=== PATIENT | female | born 1995 | race Caucasian/White ===

== ENCOUNTER 2017-01-31 10:07 | Emergency (ER) | payer OTHER, SELFPAY | END 2017-01-31 11:05 | disposition home or self-care (01) | PROVIDERS: Emergency Provider Nurse Practitioner Family; Family Provider Emergency Medicine; Visit Provider Nurse Practitioner Family | DX: J06.9 Acute upper respiratory infection, unspecified (principal); F17.210 Nicotine dependence, cigarettes, uncomplicated | CPT/HCPCS: 87804; 87880; 99201 ==

== ENCOUNTER 2017-02-06 14:50 | Emergency (ER) | payer OTHER, SELFPAY | END 2017-02-06 16:40 | disposition home or self-care (01) | PROVIDERS: Emergency Provider Nurse Practitioner Family; Family Provider Emergency Medicine; Visit Provider Nurse Practitioner Family | DX: M25.561 Pain in right knee (principal); F17.210 Nicotine dependence, cigarettes, uncomplicated; Z88.3 Allergy status to other anti-infective agents; Z88.0 Allergy status to penicillin; Z91.018 Allergy to other foods | CPT/HCPCS: 29505; 73562; 99203 ==

== ENCOUNTER 2017-02-14 20:05 | Emergency (ER) | payer OTHER, SELFPAY | END 2017-02-14 21:05 | disposition home or self-care (01) | PROVIDERS: Emergency Provider Nurse Practitioner Family; Family Provider Emergency Medicine; Visit Provider Nurse Practitioner Family | DX: Z32.02 Encounter for pregnancy test, result negative (principal); R11.0 Nausea; F17.210 Nicotine dependence, cigarettes, uncomplicated; Z88.1 Allergy status to other antibiotic agents | CPT/HCPCS: 36415; 81025; 84703; 99201 ==

== ENCOUNTER 2017-03-19 20:20 | Emergency (ER) | payer OTHER, SELFPAY ==
[2017-03-19 20:21] VITALS: BP 117/73; PULSE 88; RESP 14; TEMP 36.7; O2SAT 100; BMI 31.2
[2017-03-19 20:28] VITALS: BMI 33.3
--- NOTE | 2017-03-19 20:29 | XR_ITS ---
XR chest 2V HISTORY: ITS.REASON: CHEST PAIN ORDERING PHYSICIAN: Chong Byrd MD PATIENT AGE: 22 years COMPARISON: None available FINDINGS: The cardiomediastinal silhouette and pulmonary vascularity are within normal limits. The lungs are clear without infiltrates, suspicious nodules, or pleural effusions. No acute bony abnormalities. IMPRESSION: Negative chest, no acute finding
[2017-03-19 20:43] LABS: Basophils % 0.3 % (0.1-2.0); Eosinophils # 0.4 K/mm3 (0.0-0.4); Hematocrit 39.6 % (37.0-47.0); Hemoglobin 12.9 g/dL (12.2-16.2); Lymphocytes # 3.8 K/mm3 (0.7-4.5); Lymphocytes % 31.7 K/mm3 (10-50); Mean Corpuscular HGB Conc 32.5 g/dL (31.8-35.4); Mean Corpuscular Volume 92.5 fl (81-99); Mean Platelet Volume 8.7 fl (7.4-10.4); Monocytes # 0.5 K/mm3 (0.1-1.0); Neutrophils # 7.4 K/mm3 (1.8-7.8); Platelet Count 218 K/mm3 (142-424); Red Blood Count 4.29 M/mm3 (4.20-5.40); Red Cell Distribution Width 12.8 % (11.5-17.5); White Blood Count 12.1 K/mm3 (4.8-10.8)
[2017-03-19 21:08] LABS: Alanine Aminotransferase 19 U/L (12-78); Albumin Level 3.3 gm/dL (3.4-5.0); Alkaline Phosphatase 73 U/L (46-116); Amylase 39 U/L (25-125); Anion Gap 11.9 mEq/L (5-15); Aspartate Amino Transferase 11 U/L (15-37); Bilirubin,Total 0.1 mg/dL (0.2-1.0); Blood Urea Nitrogen 10 mg/dL (7-18); Calcium 8.3 mg/dL (8.5-10.1); Carbon Dioxide 29 mmol/L (21.0-32.0); Chloride 104 mmol/L (98-107); Creatine Kinase 11 U/L (26-192); Creatinine Clearance Estimated 160 mL/min (0-300); Creatinine,Serum 0.72 mg/dL (0.55-1.02); Estimated Glomerular Filt Rate 101 ml/min (>60); GFR (African American) 123 ML/MIN (>60); Globulin 3.4 gm/dl (1.3-3.2); Glucose 91 mg/dL (74-106); Potassium 3.9 mmoL/L (3.5-5.1); Sodium 141 mmol/L (136-145); Total Protein,Serum 6.7 gm/dL (6.4-8.2); Troponin I < 0.02 ng/ml (0.00-0.06)
[2017-03-19 21:10] LABS: Microscopic, Urine URINE MICROSCOPIC (MICROSCOPIC)
[2017-03-19 21:19] LABS: Appearance,Urine CLEAR (Clear); Bilirubin,Urine Negative (Negative); Blood, Urine Negative (Negative); Color,Urine YELLOW (Yellow); Glucose,Urine (UA) Negative (Negative); Ketones,Urine Negative (Negative); Leukocyte Esterase,Urine Negative (Negative); Nitrate,Urine Negative (Negative); PH,Urine 6.5 (5.0-8.5); Protein,Urine Negative (Negative); Urobilinogen,Urine 0.2 EU/dl (0.2)
[2017-03-19 21:26] LABS: Bacteria,Urine 1+ /lpf
[2017-03-19 21:32] LABS: CKMB Relative Index 4.5 U/L (0-4.0); Creatine Kinase MB < 0.5 mg/ml (0.0-3.6)
[2017-03-19 22:03] LABS: Lipase 143 u/L (73-393)
[2017-03-19 22:03] LABS: Urine Pregnancy, HCG Qual. Negative (Negative)
--- NOTE | 2017-03-19 22:30 | HMH.EDCP ---
ED Disposition Clinical Impression: Costochondritis, acute Disposition: Home, Self-Care Condition on Discharge: Good Instructions: DI for Costochondritis Additional Instructions: call pcp for follow up Referrals: Chong Byrd MD [Primary Care Provider] - - Critical Care Critical Care Time: No Attestation: On 03/19/17, the high probability of a clinically significant, sudden or life threatening deterioration of the following system(s) required my full and direct attention, intervention and personal management. The time I documented below is in addition to time spent performing reported procedures but includes the following listed in this critical care notation. Medical Decision Making Vital Signs: 03/19/17 20:21 Temperature 98.0 F Temperature Source Oral Pulse Rate [Right Radial] 88 Respiratory Rate 14 Blood Pressure [Left Arm] 117/73 Blood Pressure Mean [Left Arm] 87 Blood Pressure Source [Left Arm] Automatic Cuff Blood Pressure Position [Left Arm] Supine 02 Sat by Pulse Oximetry 100 Oxygen Delivery Method Room Air - Lab Data Lab results reviewed: Yes: I reviewed the patient's lab results. Lab Results 03/19/17 20:30: WBC 12.1 H, RBC 4.29, Hgb 12.9, Hct 39.6, MCV 92.5, MCH 30.0, MCHC 32.5, RDW 12.8, Plt Count 218, MPV 8.7, Neut % (Auto) 61.0, Lymph % (Auto) 31.7, Guthrie % (Auto) 4.0, Eos % (Auto) 3.0, Baso % (Auto) 0.3, Neut # (Auto) 7.4, Lymph # (Auto) 3.8, Guthrie # (Auto) 0.5, Eos # (Auto) 0.4, Baso # (Auto) 0.0 03/19/17 20:30: Sodium 141, Potassium 3.9, Chloride 104, Carbon Dioxide 29, Anion Gap 11.9, BUN 10, Creatinine 0.72, Estimated Creat Clear 160, Estimated GFR 101, Est GFR ( Amer) 123, Glucose 91, Calcium 8.3 L, Total Bilirubin 0.1 L, AST 11 L, ALT 19, Alkaline Phosphatase 73, Total Creatine Kinase 11 L, CK-MB (CK-2) < 0.5, CK-MB (CK-2) Rel Index 4.5 H, Troponin I < 0.02, Total Protein 6.7, Albumin 3.3 L, Globulin 3.4 H, Albumin/Globulin Ratio 1.0 L, Amylase 39 03/19/17 20:30: Lipase 143 03/19/17 20:39: Urine HCG, Qual Negative 03/19/17 20:53: Urine Color Yellow, Urine Appearance Clear, Urine pH 6.5, Ur Specific [place] 1.020, Urine Protein Negative, Urine Glucose (UA) Negative, Urine Ketones Negative, Urine Blood Negative, Urine Nitrate Negative, Urine Bilirubin Negative, Urine Urobilinogen 0.2, Ur Leukocyte Esterase Negative, Urine WBC 3-5, Ur Squamous Epith Cells 5-10, Urine Bacteria 1+ Result diagrams: 03/19/17 20:30 03/19/17 20:30 Orders (Tests/Meds): ED MEDICATIONS Discontinued Medications Generic Name Dose Route Start Last Admin Trade Name Freq PRN Reason Stop Dose Admin Aspirin 324 mg 03/19/17 20:30 03/19/17 20:46 Aspirin 81mg Chewable Tablet PO 03/19/17 20:31 324 mg ONCE ONE Administration ORDERS Category Date Time Status CT angio chest Stat Cat Scan 03/19/17 23:05 Taken Chest XR 2 view (NOT portable) [XR chest 2V] Stat Exams 03/19/17 20:29 Taken 12-lead EKG Request [ECG Request by /Ruddy] Stat Y 03/19/17 20:29 Ordered - Radiology Data #1 Image(s): Chest Image Reviewed: Yes I reviewed the patient's radiology image Preliminary Findings: Normal/NAD - CT Data CT Scan: Chest Time Received: 23:[address] Reviewed: Yes: I have viewed the radiologist's interpretation Preliminary Findings: Normal/NAD - ECG Data Tracing #1 I reviewed this ECG and interpreted as documented below: Ischemic changes: non-specific ST-T wave changes - Graham Inquiry Pt receiving controlled substance: No Chest Pain HPI - General Chief Complaint: Abdominal Pain Stated Complaint: chest pain / dizzy Time Seen by Provider: 03/19/17 22:30 Mode of Arrival: Ambulatory Source of Information: Patient, Significant Other, Medical Record Limitations: No Limitations Description of Symptoms (Recalled from ER Triage Doc. by RN): left upper abdomen pain into chest, dizziness, nausa - History of Present Illness HPI narrative: acute onset of lt sided lt
--- NOTE | 2017-03-19 22:33 | ED_ITS ---
ED Disposition Clinical Impression: Costochondritis, acute Disposition: Home, Self-Care Condition on Discharge: Good Instructions: DI for Costochondritis Additional Instructions: call pcp for follow up Referrals: Chong Byrd MD [Primary Care Provider] - - Critical Care Critical Care Time: No Attestation: On 03/19/17, the high probability of a clinically significant, sudden or life threatening deterioration of the following system(s) required my full and direct attention, intervention and personal management. The time I documented below is in addition to time spent performing reported procedures but includes the following listed in this critical care notation. Medical Decision Making Vital Signs: 03/19/17 20:21 Temperature 98.0 F Temperature Source Oral Pulse Rate [Right Radial] 88 Respiratory Rate 14 Blood Pressure [Left Arm] 117/73 Blood Pressure Mean [Left Arm] 87 Blood Pressure Source [Left Arm] Automatic Cuff Blood Pressure Position [Left Arm] Supine 02 Sat by Pulse Oximetry 100 Oxygen Delivery Method Room Air - Lab Data Lab results reviewed: Yes: I reviewed the patient's lab results. Lab Results 03/19/17 20:30: WBC 12.1 H, RBC 4.29, Hgb 12.9, Hct 39.6, MCV 92.5, MCH 30.0, MCHC 32.5, RDW 12.8, Plt Count 218, MPV 8.7, Neut % (Auto) 61.0, Lymph % (Auto) 31.7, Pope % (Auto) 4.0, Eos % (Auto) 3.0, Baso % (Auto) 0.3, Neut # (Auto) 7.4 , Lymph # (Auto) 3.8, Pope # (Auto) 0.5, Eos # (Auto) 0.4, Baso # (Auto) 0.0 03/19/17 20:30: Sodium 141, Potassium 3.9, Chloride 104, Carbon Dioxide 29, Anion Gap 11.9, BUN 10, Creatinine 0.72, Estimated Creat Clear 160, Estimated GFR 101, Est GFR ( Amer) 123, Glucose 91, Calcium 8.3 L, Total Bilirubin 0.1 L, AST 11 L, ALT 19, Alkaline Phosphatase 73, Total Creatine Kinase 11 L, CK -MB (CK-2) < 0.5, CK-MB (CK-2) Rel Index 4.5 H, Troponin I < 0.02, Total Protein 6.7, Albumin 3.3 L, Globulin 3.4 H, Albumin/Globulin Ratio 1.0 L, Amylase 39 03/19/17 20:30: Lipase 143 03/19/17 20:39: Urine HCG, Qual Negative 03/19/17 20:53: Urine Color Yellow, Urine Appearance Clear, Urine pH 6.5, Ur Specific [place] 1.020, Urine Protein Negative, Urine Glucose (UA) Negative, Urine Ketones Negative, Urine Blood Negative, Urine Nitrate Negative, Urine Bilirubin Negative, Urine Urobilinogen 0.2, Ur Leukocyte Esterase Negative, Urine WBC 3-5, Ur Squamous Epith Cells 5-10, Urine Bacteria 1+ Result diagrams: 03/19/17 20:30 03/19/17 20:30 Orders (Tests/Meds): ED MEDICATIONS Discontinued Medications Generic Name Dose Route Start Last Admin Trade Name Freq PRN Reason Stop Dose Admin Aspirin 324 mg 03/19/17 20:30 03/19/17 20:46 Aspirin 81mg Chewable Tablet PO 03/19/17 20:31 324 mg ONCE ONE Administration ORDERS Category Date Time Status CT angio chest Stat Cat Scan 03/19/17 23:05 Taken Chest XR 2 view (NOT portable) [XR chest 2V] Stat Exams 03/19/17 20:29 Taken 12-lead EKG Request [ECG Request by /Ruddy] Stat Y 03/19/17 20:29 Ordered - Radiology Data #1 Image(s): Chest Image Reviewed: Yes I reviewed the patient's radiology image Preliminary Findings: Normal/NAD - CT Data CT Scan: Chest Time Received: 23:[address] Reviewed: Yes: I have viewed the radiologist's interpretation Preliminary Findings: Normal/NAD - ECG Data Tracing #1 I reviewed this
--- NOTE | 2017-03-19 23:05 | CT_ITS ---
CT angio chest HISTORY: Shortness of breath, chest pain, left-sided chest pain, left anterior chest pain ITS.REASON: SOA ORDERING PHYSICIAN: Chong Byrd MD PATIENT AGE: 22 years TECHNIQUE: Axial images obtained following the administration of 75 mL of Isovue 370 . Sagittal, and coronal reformatted images are also generated and reviewed. COMPARISON: None FINDINGS: PULMONARY ARTERIES:No pulmonary embolus evident. AORTA:No acute finding. No thoracic aortic aneurysm or dissection evident LUNGS:Unremarkable. No mass or consolidation. PLEURAL SPACES:No significant effusion. No evidence of pneumothorax. HEART:Unremarkable. Normal heart size. No significant pericardial effusion. MEDIASTINAL AND HILAR STRUCTURES:No mediastinal or hilar mass evident. No dominant adenopathy.. Soft tissue density in the anterior mediastinum probably related to residual finding tissue. BONY STRUCTURES:No acute bony abnormalities apparent LYMPH NODES:No enlarged lymph nodes evident UPPER ABDOMEN:Unremarkable IMPRESSION: No acute finding. No evidence of pulmonary embolus or aortic aneurysm. Negative CTA of the chest
--- NOTE | 2017-03-19 23:08 | PC.NURSE ---
Pt.to radiology for CT
[2017-03-20 00:11] VITALS: BP 117/66; PULSE 80; RESP 16; TEMP 36.8; O2SAT 98
== END 2017-03-20 00:12 | disposition home or self-care (01) ==
PROVIDERS: Emergency Provider Emergency Medicine; Family Provider Emergency Medicine; PCP Emergency Medicine
DX: M94.0 Chondrocostal junction syndrome [Tietze] (principal)
CPT/HCPCS: 71046; 71275; 80053; 81001; 81025; 82150; 82550; 82553; 83690; 84484; 85025; 93005; 93041; 99284; Q9967

== ENCOUNTER 2017-03-27 16:24 | Emergency (ER) | payer OTHER, SELFPAY ==
[2017-03-27 16:48] VITALS: BP 128/83; PULSE 100; RESP 20; TEMP 37.5; O2SAT 98; BMI 29.8
--- NOTE | 2017-03-27 16:57 | HMH.EDUTC ---
[facility] [place] Disposition Clinical Impression: Viral upper respiratory illness Disposition: Home, Self-Care Condition on Discharge: Good Instructions: DI for Viral Upper Respiratory Infection -- Adult Additional Instructions: * Monitor Temp. Tylenol and/or Ibuprofen as needed. ER if fever is no less than 101 despite alternating Tylenol and Ibuprofen * Encourage fluids, water, Gatorade, powerade, pedialyte if infant/toddler/or child * Warm salt water gargles for throat irritation *Warm fluids *Sore throat lozenges *Sleep elevated *humidifier or vaporizer Lots of rest Increase fluids, water, Gatorade, powerade *Bromfed may cause drowsiness. Know how it effect you or your child. Before driving, caring for small children or sending your child to school Follow up IMMEDIATELY for new or worsening of symptoms OR no noticeable improvement over the next 48-72 hours. 911 immediately for any life threatening symptoms such as chest pain or difficulty breathing Prescriptions: Ibuprofen [Ibuprofen 800mg Tab] 800 mg PO Q6HP PRN #20 tab PRN Reason: Moderate Pain Brompheniramine/Pseudoephed/Dm [Bromfed DM Cough Syrup 5mL] 10 ml PO Q4H PRN #250 syrup PRN Reason: Cough Referrals: Chong Byrd MD [Primary Care Provider] - Time of Disposition: 17:13 Medical Decision Making - Medical Records Medical records reviewed: Yes: I reviewed the patient's medical records. Vital Signs: 03/27/17 16:48 Temperature 99.5 F Temperature Source Temporal Artery Scan Pulse Rate [Right] 100 H Respiratory Rate 20 Blood Pressure [Right Arm] 128/83 Blood Pressure Mean [Right Arm] 98 Blood Pressure Source [Right Arm] Automatic Cuff Blood Pressure Position [Right Arm] Sitting 02 Sat by Pulse Oximetry 98 Oxygen Delivery Method Room Air - Graham Inquiry Pt receiving controlled substance: No Graham was queried for this patient: No [facility] [place] HPI - General Stated complaint: body pain,weakness Mode of Arrival: Ambulatory Source of Information: Patient Limitations: No Limitations Description of Symptoms (Recalled from Triage Doc. by RN): BODY ACHES THIS AM HEENT Symptoms (Recalled from RN notes): Yes Resp Symptoms (Recalled from RN notes): No Skin Symptoms (Recalled from RN notes): No MS Symptoms (Recalled from RN notes): No Functional Status (Recalled from RN notes): N - History of Present Illness Provider Complaint: Patient states that she began to have body aches since this morning States that as the day went on she begin to run a low grade fever State that as the day progressed she continued to feel worse and she has babies at home so she came in to get checked for the flu - Related Data Previous Rx's Medication Instructions Recorded Brompheniramine/Pseudoephed/Dm 10 ml PO Q4H PRN #250 syrup 03/27/17 [Bromfed DM Cough Syrup 5mL] Ibuprofen [Ibuprofen 800mg Tab] 800 mg PO Q6HP PRN #20 tab 03/27/17 Allergies Allergy/AdvReac Type Severity Reaction Status Date / Time penicillin G [PENICILLIN G] Allergy Intermediate SWELLING Verified 03/22/17 10:25 erythromycin base Allergy Mild I-HIVES Verified 03/22/17 10:25 [ERYTHROMYCIN BASE] ARTIFICIAL STRAWBERRY Allergy Mild I-RASH Uncoded 02/06/17 14:05 FLAVORING - Worker's Comp Is this a Worker's Comp case?: No [facility] History I have reviewed the patient's past medical history: Yes Medical History: Denies:: Cancer, Diabetes Mellitus Type 1, Diabetes Mellitus Type 2, MRSA Laterality Cases: Bilateral: Tonsillectomy Amputation: No Fractures: No - *Social History Smoking Status: Current every day smoker Tobacco Type: cigarettes # Packs/Day (cigarettes): 1 Alcohol Intake: never Substance Use Type: denies use - Psychiatric History Expresses thoughts of harming self/others: None Suicide Plan Description: No Plan ROS Obtained: Yes All systems reviewed & no additional complaints - Constitutional Constitutional: Reports body ache, Reports chills, Reports fever(s) - ENT
--- NOTE | 2017-03-27 17:07 | ED_ITS ---
[facility] [place] Disposition Clinical Impression: Viral upper respiratory illness Disposition: Home, Self-Care Condition on Discharge: Good Instructions: DI for Viral Upper Respiratory Infection -- Adult Additional Instructions: * Monitor Temp. Tylenol and/or Ibuprofen as needed. ER if fever is no less than 101 despite alternating Tylenol and Ibuprofen * Encourage fluids, water, Gatorade, powerade, pedialyte if infant/toddler/or child * Warm salt water gargles for throat irritation *Warm fluids *Sore throat lozenges *Sleep elevated *humidifier or vaporizer Lots of rest Increase fluids, water, Gatorade, powerade *Bromfed may cause drowsiness. Know how it effect you or your child. Before driving, caring for small children or sending your child to school Follow up IMMEDIATELY for new or worsening of symptoms OR no noticeable improvement over the next 48-72 hours. 911 immediately for any life threatening symptoms such as chest pain or difficulty breathing Prescriptions: Ibuprofen [Ibuprofen 800mg Tab] 800 mg PO Q6HP PRN #20 tab PRN Reason: Moderate Pain Brompheniramine/Pseudoephed/Dm [Bromfed DM Cough Syrup 5mL] 10 ml PO Q4H PRN # 250 syrup PRN Reason: Cough Referrals: Chong Byrd MD [Primary Care Provider] - Time of Disposition: 17:13 Medical Decision Making - Medical Records Medical records reviewed: Yes: I reviewed the patient's medical records. Vital Signs: 03/27/17 16:48 Temperature 99.5 F Temperature Source Temporal Artery Scan Pulse Rate [Right] 100 H Respiratory Rate 20 Blood Pressure [Right Arm] 128/83 Blood Pressure Mean [Right Arm] 98 Blood Pressure Source [Right Arm] Automatic Cuff Blood Pressure Position [Right Arm] Sitting 02 Sat by Pulse Oximetry 98 Oxygen Delivery Method Room Air - Graham Inquiry Pt receiving controlled substance: No Graham was queried for this patient: No [facility] [place] HPI - General Stated complaint: body pain,weakness Mode of Arrival: Ambulatory Source of Information: Patient Limitations: No Limitations Description of Symptoms (Recalled from Triage Doc. by RN): BODY ACHES THIS AM HEENT Symptoms (Recalled from RN notes): Yes Resp Symptoms (Recalled from RN notes): No Skin Symptoms (Recalled from RN notes): No MS Symptoms (Recalled from RN notes): No Functional Status (Recalled from RN notes): N - History of Present Illness Provider Complaint: Patient states that she began to have body aches since this morning States that as the day went on she begin to run a low grade fever State that as the day progressed she continued to feel worse and she has babies at home so she came in to get checked for the flu - Related Data Previous Rx's Medication Instructions Recorded Brompheniramine/Pseudoephed/Dm 10 ml PO Q4H PRN #250 syrup 03/27/17 [Bromfed DM Cough Syrup 5mL] Ibuprofen [Ibuprofen 800mg Tab] 800 mg PO Q6HP PRN #20 tab 03/27/17 Allergies Allergy/AdvReac Type Severity Reaction Status Date / Time penicillin G [PENICILLIN G] Allergy Intermediate SWELLING Verified 03/22/17 10: 25 erythromycin base Allergy Mild I-HIVES Verified 03/22/17 10:25 [ERYTHROMYCIN BASE] ARTIFICIAL STRAWBERRY Allergy Mild I-RASH Uncoded 02/06/17 14:05 FLAVORING - Worker's Comp Is this a Worker's Comp case?: No H History I have reviewed the patient's past medical history: Y
[2017-03-27 17:18] LABS: UTC Influenza A Antigen Negative (Negative); UTC Influenza B Antigen Negative (Negative)
[2017-03-27 17:28] VITALS: BP 118/72; PULSE 88; RESP 18; TEMP 37.2
== END 2017-03-27 17:29 | disposition home or self-care (01) ==
PROVIDERS: Emergency Provider Nurse Practitioner; Family Provider Emergency Medicine; PCP Emergency Medicine
DX: J06.9 Acute upper respiratory infection, unspecified (principal)
CPT/HCPCS: 87804; 99201

== ENCOUNTER → 2017-04-26 10:18 | Outpatient (REF) | payer OTHER, SELFPAY ==
[2017-04-26 14:25] LABS: Alanine Aminotransferase 24 U/L (12-78); Albumin Level 3.5 gm/dL (3.4-5.0); Albumin/Globulin Ratio 1.1 (1.1-1.8); Alkaline Phosphatase 82 U/L (46-116); Anion Gap 14.3 mEq/L (5-15); Aspartate Amino Transferase 12 U/L (15-37); Bilirubin,Total 0.1 mg/dL (0.2-1.0); Blood Urea Nitrogen 11 mg/dL (7-18); Calcium 8.7 mg/dL (8.5-10.1); Carbon Dioxide 23 mmol/L (21.0-32.0); Chloride 105 mmol/L (98-107); Chol/HDL Ratio 5.7 (1-3.5); Cholesterol 148 mg/dL (140-200); Creatinine,Serum 0.76 mg/dL (0.55-1.02); Estimated Glomerular Filt Rate 95 ml/min (>60); Free T4 (Free Thyroxine) 0.97 ng/dl (0.76-1.46); GFR (African American) 115 ML/MIN (>60); Globulin 3.2 gm/dl (1.3-3.2); Glucose 95 mg/dL (74-106); HDL Cholesterol 26 mg/dL (29-89); LDL Cholesterol 53 mg/dL (0-130); Potassium 4.3 mmoL/L (3.5-5.1); Sodium 138 mmol/L (136-145); Thyroid Stimulating Hormone 2.34 uIU/ml (0.358-3.740); Total Protein,Serum 6.7 gm/dL (6.4-8.2); Triglycerides 347 mg/dL (30-200); VLDL Cholesterol 69 mg/dL (0-40)
[2017-04-26 14:46] LABS: Hemoglobin A1C 4.9 % (0.0-7.0)
[2017-04-26 18:08] LABS: Basophils % 0.4 % (0.1-2.0); Eosinophils # 0.3 K/mm3 (0.0-0.4); Eosinophils % 2.5 % (0.1-12.0); Hematocrit 42.3 % (37.0-47.0); Hemoglobin 13.7 g/dL (12.2-16.2); Lymphocytes # 2.9 K/mm3 (0.7-4.5); Lymphocytes % 28.1 K/mm3 (10-50); Mean Corpuscular HGB Conc 32.3 g/dL (31.8-35.4); Mean Corpuscular Hemoglobin 30.5 pg (27.0-31.2); Mean Corpuscular Volume 94.4 fl (81-99); Mean Platelet Volume 10.6 fl (7.4-10.4); Monocytes # 0.3 K/mm3 (0.1-1.0); Monocytes % 3.1 % (1.7-9.3); Neutrophils # 6.9 K/mm3 (1.8-7.8); Platelet Count 232 K/mm3 (142-424); Red Blood Count 4.48 M/mm3 (4.20-5.40); Red Cell Distribution Width 12.7 % (11.5-17.5); White Blood Count 10.5 K/mm3 (4.8-10.8)
[2017-04-27 19:25] LABS: Vitamin D 25 Hydroxy 17.1 ng/mL (30.0-100.0)
== END ==
LOC: LAB 10:18
PROVIDERS: Visit Provider Nurse Practitioner Family
DX: R53.83 Other fatigue (principal)
CPT/HCPCS: 80053; 80061; 82652; 83036; 84439; 84443; 85025

== ENCOUNTER 2019-12-09 16:27 | Emergency (ER) | payer BC, SELFPAY ==
[2019-12-09 16:28] VITALS: BP 137/92; PULSE 64; RESP 19; TEMP 36.8; O2SAT 100; BMI 27.4
--- NOTE | 2019-12-09 17:06 | HMH.EDUTC ---
[facility] Disposition Clinical Impression: Acute mastitis of right breast Nausea and vomiting Qualifiers: Vomiting type: unspecified Vomiting Intractability: non-intractable Qualified Code(s): R11.2 - Nausea with vomiting, unspecified Disposition: Home, Self-Care Condition on Discharge: Good Instructions: DI for Mastitis Additional Instructions: Apply warm wet compresses to the affected area on your breast 4 time per day. Take the medications as directed. You must follow up with your primary care physician regarding your mastitis. You may need additional imaging and work up. Make sure you follow up with in 48 to 72 hours. Take the zofran for your nausea/vomiting. GO TO THE ER FOR ANY WORSENING SYMPTOMS OR CONCERNS, ESPECIALLY FEVER/CHILLING OR CONTINUED VOMITING Prescriptions: Ondansetron [Zofran 4mg ODT] 4 mg PO Q8HP PRN #20 tab.rapdis PRN Reason: Nausea Transmission Status: Received by [facility] clindamycin HCL [Clindamycin HCl 300mg Cap] 300 mg PO Q8 10 Days #30 cap Transmission Status: Received by [facility] Referrals: Chong Byrd MD [Primary Care Provider] - Forms: Work/School Release Time of Disposition: 17:12 Medical Decision Making - Medical Records Medical records reviewed: No: I reviewed the patient's medical records. - Graham Inquiry Pt receiving controlled substance: No Vital Signs: 12/09/19 16:28 12/09/19 17:14 Temperature 98.2 F 98.2 F Temperature Source Oral Pulse Rate 64 Pulse Rate [Left Radial] 64 Respiratory Rate 19 19 Blood Pressure 137/92 H Blood Pressure [Right Arm] 137/92 H Blood Pressure Mean [Right Arm] 107 Blood Pressure Source Automatic Cuff Blood Pressure Source [Right Arm] Automatic Cuff Blood Pressure Position Sitting Blood Pressure Position [Right Arm] Sitting 02 Sat by Pulse Oximetry 100 Oxygen Delivery Method Room Air Room Air [facility] HPI - General Stated complaint: vOMITING Time Seen by Provider: 12/09/19 16:35 Mode of Arrival: Ambulatory Source of Information: Patient Limitations: No Limitations Description of Symptoms (Recalled from Triage Doc. by RN): c/o vomiting and no appetite for a week. States she has a swollen/warm red area around her nipple into her skin area HEENT Symptoms (Recalled from RN notes): No Resp Symptoms (Recalled from RN notes): No Skin Symptoms (Recalled from RN notes): No MS Symptoms (Recalled from RN notes): No Functional Status (Recalled from RN notes): wnl - History of Present Illness Provider Complaint: She states that she has felt bad and had frequent vomiting for the past 2 weeks. She states these symptoms began after she developed a swollen, red area on her right breast. She denies any fever or chills. She denies any nipple discharge from the affected breast. - Related Data Previous Rx's Medication Instructions Recorded Benzonatate [Tessalon Perle 100mg 100 mg PO TID #30 cap 05/21/18 Cap] levoFLOXacin [Levaquin 500mg 500 mg PO DAILY #7 tab 05/21/18 tab] predniSONE [Prednisone 20mg 20 mg PO BID #10 tab 05/21/18 Tab] Ondansetron [Zofran 4mg ODT] 4 mg PO Q8HP PRN #20 tab.rapdis 12/09/19 clindamycin HCL [Clindamycin HCl 300 mg PO Q8 10 Days #30 cap 12/09/19 300mg Cap] Allergies Allergy/AdvReac Type Severity Reaction Status Date / Time penicillin G [PENICILLIN G] Allergy Intermediate SWELLING Verified 10/24/17 20:50 erythromycin base Allergy Mild I-HIVES Verified 10/24/17 20:50 [ERYTHROMYCIN BASE] ARTIFICIAL STRAWBERRY Allergy Mild I-RASH Uncoded 05/24/17 12:48 FLAVORING - Worker's Comp Is this a Worker's Comp case?: No [facility] History - Hepatitis A Screen Drug use history?: No High risk sexual behaviors?: No History of sexually transmitted infection?: No Currently employed?: No Childcare worker?: No Do you have indoor plumbing?: Yes Do you have electricity?: Yes Attestation statement:: This patie
[2019-12-09 17:14] VITALS: BP 137/92; PULSE 64; RESP 19; TEMP 36.8; O2SAT 100
[2019-12-09 20:15] LABS: UTC Pregnancy Test, Urine Negative (Negative)
== END 2019-12-09 17:35 | disposition home or self-care (01) ==
PROVIDERS: Emergency Provider Nurse Practitioner Family; PCP Emergency Medicine
DX: N61.0 Mastitis without abscess (principal); G43.709 Chronic migraine without aura, not intractable, without status migrainosus; F17.210 Nicotine dependence, cigarettes, uncomplicated
CPT/HCPCS: 81025; 99201

== ENCOUNTER 2020-01-10 17:17 | Emergency (ER) | payer SELFPAY ==
[2020-01-10 17:20] VITALS: BP 135/85; PULSE 89; RESP 20; TEMP 36.9; O2SAT 100; BMI 29.2
--- NOTE | 2020-01-10 17:35 | HMH.EDUTC ---
[facility] [place] Clinical Impression: Exposure to COVID-19 virus Nausea and vomiting Qualifiers: Vomiting type: unspecified Vomiting Intractability: non-intractable Qualified Code(s): R11.2 - Nausea with vomiting, unspecified Disposition: Home, Self-Care Condition on Discharge: Good Instructions: Preventing the Spread of Coronavirus Discharge Instructions, DI for Nausea -- Adult Additional Instructions: Monitor temperature. Seek treatment if fever develops. Follow-up immediately if new or worse symptoms worsen or no noticeable improvement over 48 hours. Increase fluids such as water, Gatorade, Powerade, juice or Pedialyte with limited formula/dietary in children No food is okay as long as you are drinking. Once ready to eat start bland such as bananas, rice, applesauce, toast. Contagious until no diarrhea, vomiting, fever times 48 hours without medication Avoid antidiarrheals unless told otherwise. Best to let the virus run its course. Follow-up immediately for new or worsening symptoms or no noticeable improvement over the next 48 hours. self isolate until test results are known to be neg follow up with pcp if symptoms worsen or do not improve increase fluids tylenol or motrin as needed Referrals: Chong Byrd MD [Primary Care Provider] - Time of Disposition: 17:43 Medical Decision Making - Graham Inquiry Pt receiving controlled substance: No Vital Signs: 01/10/20 17:20 Temperature 98.4 F Temperature Source Oral Pulse Rate [Right Brachial] 89 Respiratory Rate 20 Blood Pressure [Right Arm] 135/85 Blood Pressure Mean [Right Arm] 101 Blood Pressure Source [Right Arm] Automatic Cuff Blood Pressure Position [Right Arm] Sitting 02 Sat by Pulse Oximetry 100 Oxygen Delivery Method Room Air Orders (Tests/Meds): ORDERS Category Date Time Status Covid-19 Nasal PCR Sendout [facility] Stat Lab 01/10/20 17:25 Received [facility] HPI - General Chief complaint: [facility] Stated complaint: COVID Testing Time Seen by Provider: 01/10/20 17:35 Mode of Arrival: Ambulatory Source of Information: Patient Limitations: No Limitations Description of Symptoms (Recalled from Triage Doc. by RN): PATIENT REQUESTING COVID TEST D/T EXPOSURE; DENIES SYMPTOMS HEENT Symptoms (Recalled from RN notes): No Resp Symptoms (Recalled from RN notes): No Skin Symptoms (Recalled from RN notes): No MS Symptoms (Recalled from RN notes): No Functional Status (Recalled from RN notes): WNL - History of Present Illness Provider Complaint: 24 yr old female presents for covid test. Pt states she was exposed. Pt states she has a runny nose and nausea. - Related Data Home Medications Medication Instructions Recorded Confirmed No Known Home Medications 12/19/19 12/19/19 Allergies Allergy/AdvReac Type Severity Reaction Status Date / Time penicillin G [PENICILLIN G] Allergy Intermediate SWELLING Verified 12/19/19 10:21 erythromycin base Allergy Mild I-HIVES Verified 12/19/19 10:21 [ERYTHROMYCIN BASE] ARTIFICIAL STRAWBERRY Allergy Mild I-RASH Uncoded 12/19/19 10:21 FLAVORING - Worker's Comp Is this a Worker's Comp case?: No [facility] History - Hepatitis A Screen Drug use history?: No High risk sexual behaviors?: No History of sexually transmitted infection?: No Currently employed?: No Childcare worker?: No Do you have indoor plumbing?: Yes Do you have electricity?: Yes Attestation statement:: This patient has been screened for Hepatitis A risk factors. I have reviewed the patient's past medical history: Yes Medical History: Reports:: Migraine Denies:: Cancer, Diabetes Mellitus Type 1, Diabetes Mellitus Type 2, Gall Bladder Disease, Gastroesophageal Reflux Disease(GERD), Gastrointestinal Bleed, Hypertension, MRSA Laterality Cases: Bilateral: Tonsillectomy Other Surgeries: Yes: , Other Amputation: No Fractures: No Comment: WISDOM TEETH REMOVED - Social History Smoking Status: Current ben
[2020-01-10 17:43] VITALS: BP 135/85; PULSE 89; RESP 20; TEMP 36.9; O2SAT 100
[2020-01-12 10:20] LABS: Covid-19 Nasal PCR Sendout UK Not Detected
== END 2020-01-10 17:45 | disposition home or self-care (01) ==
PROVIDERS: Emergency Provider Nurse Practitioner Family; PCP Emergency Medicine
DX: Z20.828 Contact with and (suspected) exposure to other viral communicable diseases (principal); F17.210 Nicotine dependence, cigarettes, uncomplicated; Z88.0 Allergy status to penicillin
CPT/HCPCS: 99201; U0003

== ENCOUNTER 2020-01-31 17:09 | Emergency (ER) | payer MEDICAID, SELFPAY ==
[2020-01-31 17:09] VITALS: BP 121/84; PULSE 80; RESP 16; TEMP 36.9; O2SAT 96; BMI 30.9
--- NOTE | 2020-01-31 17:55 | PC.NURSE ---
NNEKA LUGO speaking with Dr. Horn
--- NOTE | 2020-01-31 17:57 | PC.NURSE ---
DR URENA SPOKE WITH DR RICKS
--- NOTE | 2020-01-31 18:09 | HMH.EDGENADL ---
ED Disposition Clinical Impression: Conjunctivitis Disposition: Home, Self-Care Condition on Discharge: Good Instructions: DI for Eye Pain Referrals: Chong Byrd MD [Primary Care Provider] - - Critical Care Critical Care Time: No Attestation: On 01/31/20, the high probability of a clinically significant, sudden or life threatening deterioration of the following system(s) required my full and direct attention, intervention and personal management. The time I documented below is in addition to time spent performing reported procedures but includes the following listed in this critical care notation. Medical Decision Making - Medical Records Medical records reviewed: Yes: I reviewed the patient's medical records. - Graham Inquiry Pt receiving controlled substance: No Vital Signs: 01/31/20 17:09 Temperature 98.5 F Temperature Source Oral Pulse Rate [Left Radial] 80 Respiratory Rate 16 Blood Pressure [Right Arm] 121/84 Blood Pressure Mean [Right Arm] 96 Blood Pressure Source [Right Arm] Automatic Cuff Blood Pressure Position [Right Arm] Sitting 02 Sat by Pulse Oximetry 96 Oxygen Delivery Method Room Air Medical Decision Narrative: She is a 24-year-old female who presents with left eye pain after sleeping in contacts. Exam concerning for conjunctivitis. Concern for ulcer. No specific ulcers seen on fluorescein stain. Discussed with ophthalmology who recommended every 2 gentamicin drops today and then every 4 drops tomorrow. We will call them tomorrow if she is having worsening pain. Otherwise will follow up on Sunday. Return precautions given. Discharged General Adult HPI - General Chief complaint: Eye Problems Stated complaint: FB in L eye Time Seen by Provider: 01/31/20 17:55 Mode of Arrival: Ambulatory Limitations: No Limitations Description of Symptoms (Recalled from ER Triage Doc. by RN): c/o left eye pain. States she slept in her contact last night and woke up this am with drainage and redness in her left eye. - History of Present Illness HPI narrative: She is a healthy 24-year-old female who presents the emergency department today with left eye pain and discharge. Patient sleeps in her contacts occasionally and woke up this morning with significant left eye pain. Went to work and her eye pain persisted. She is also reporting blurry vision that does not improve with blinking. Also photophobia. No fevers, pain with extraocular movements. No other complaints - Related Data Home Medications Medication Instructions Recorded Confirmed No Known Home Medications 12/19/19 12/19/19 Allergies Allergy/AdvReac Type Severity Reaction Status Date / Time penicillin G [PENICILLIN G] Allergy Intermediate SWELLING Verified 12/19/19 10:21 erythromycin base Allergy Mild I-HIVES Verified 12/19/19 10:21 [ERYTHROMYCIN BASE] ARTIFICIAL STRAWBERRY Allergy Mild I-RASH Uncoded 12/19/19 10:21 [facility] History - Hepatitis A Screen Drug use history?: No High risk sexual behaviors?: No History of sexually transmitted infection?: No Currently employed?: No Childcare worker?: No Do you have indoor plumbing?: Yes Do you have electricity?: Yes Attestation statement:: This patient has been screened for Hepatitis A risk factors. Medical History: Reports:: Migraine Denies:: Cancer, Diabetes Mellitus Type 1, Diabetes Mellitus Type 2, Gall Bladder Disease, Gastroesophageal Reflux Disease(GERD), Gastrointestinal Bleed, Hypertension, MRSA Laterality Cases: Bilateral: Tonsillectomy Other Surgeries: Yes: , Other Amputation: No Fractures: No Comment: WISDOM TEETH REMOVED - Social History Smoking Status: Current every day smoker Tobacco Type: cigarettes # Packs/Day (cigarettes): 1 Alcohol Intake: never Substance Use Type: denies use Occupational Status: other Housing: house Household Members: family, children Family Hx:: Cancer ROS Obtained: Yes All systems revie
[2020-01-31 18:36] VITALS: BP 121/84; PULSE 80; RESP 16; TEMP 36.9; O2SAT 96
== END 2020-01-31 18:37 | disposition home or self-care (01) ==
PROVIDERS: Emergency Provider Emergency Medicine; PCP Emergency Medicine
DX: H10.32 Unspecified acute conjunctivitis, left eye (principal); F17.210 Nicotine dependence, cigarettes, uncomplicated
CPT/HCPCS: 99281

== ENCOUNTER 2020-05-17 14:02 | Emergency (ER) | payer MEDICAID, SELFPAY ==
[2020-05-17 14:23] VITALS: BP 140/74; PULSE 88; RESP 19; TEMP 36.9; O2SAT 100; BMI 33.0
[2020-05-17 14:34] LABS: UTC Strep Screen (Rapid) Positive (Negative)
--- NOTE | 2020-05-17 14:39 | HMH.EDUTC ---
[facility] [place] Clinical Impression: Viral upper respiratory illness Disposition: Home, Self-Care Condition on Discharge: Good Instructions: Sore Throat, Fluticasone Nasal [place] Additional Instructions: *Monitor Temp, Over the counter Motrin or Tylenol as directed/as needed Tylenol every 4 hours and Motrin every 6 hours (as long as your family doctor has told you that you can take it) for fever or pain. and straight to ER if unable to lower temp less than 101.0 after medication given *Warm salt water gargles may help to soothe the throat *Throat Lozenges *Warm fluids like tea with honey may help to soothe the throat *Sleep elevated *Humidifier/Vaporizer *Flonase 2 sprays in each nostril daily but be aware that it may take 2-3 days before you notice improvement *Bromfed may cause drowsiness. Know how it effects you (your child) before driving, caring for small child, or sending your child to school. Not other antihistamines/allergy medications while taking bromfed Your throat swab was sent for culture. Those results are typically sent to your primary care. Be sure to follow up in 2-3 days with your family doctor/primary care physician if no improvement so they can review those result and treat if necessary. If you don?t have a primary care doctor, I recommend you get one but in the mean time, you will have to return to a walk in clinic Over the counter allergy medications like zyrtec may help with nasal congestion caused by allergies Follow up IMMEDIATELY for new or worsening symptoms or no Noticeable improvement over the next 48-72 hours. 911 for difficulty breathing or swallowing Prescriptions: Brompheniramine/Pseudoephed/Dm [Bromfed Dm Cough Syrup] 5 - 10 ml PO Q46H PRN #200 ml PRN Reason: Cough Transmission Status: Received by [facility] Fluticasone Propionate [Flonase 50mcg nasal spray 16gm] 1 spr NS DAILY #1 bottle Transmission Status: Received by [facility] Referrals: Chong Byrd MD [Primary Care Provider] - As needed Forms: Work/School Release Time of Disposition: 14:46 Medical Decision Making - Graham Inquiry Pt receiving controlled substance: No Graham was queried for this patient: No Vital Signs: 05/17/20 14:23 05/17/20 14:56 Temperature 98.4 F 98 F Temperature Source Oral Pulse Rate 85 Pulse Rate [Right] 88 Respiratory Rate 19 16 Blood Pressure 131/72 Blood Pressure [Right Arm] 140/74 Blood Pressure Mean [Right Arm] 96 Blood Pressure Source [Right Arm] Automatic Cuff Blood Pressure Position [Right Arm] Sitting 02 Sat by Pulse Oximetry 100 Oxygen Delivery Method Room Air - Lab Data Lab results reviewed: Yes: I reviewed the patient's lab results. Lab Results 05/17/20 14:28: Strep Scn Rapid Clinic Positive A [facility] [place] - General Stated complaint: Sore throat;congestion Time Seen by Provider: 05/17/20 14:40 Mode of Arrival: Ambulatory Source of Information: Patient Limitations: No Limitations Description of Symptoms (Recalled from Triage Doc. by RN): sore throat and soa. pt thinks she has strep. doesn't want to be covid swabbed. HEENT Symptoms (Recalled from RN notes): Yes (sore throat) Resp Symptoms (Recalled from RN notes): Yes (soa) Skin Symptoms (Recalled from RN notes): No MS Symptoms (Recalled from RN notes): No Functional Status (Recalled from RN notes): na - History of Present Illness Provider Complaint: Patient states that she has been having sore throat and nasal congestion and feels like at times she cannot breath through her nose States that she thinks she may have strep throat Denies fever and states that she does not want tested for covid - Related Data Previous Rx's Medication Instructions Recorded Brompheniramine/Pseudoephed/Dm 5 - 10 ml PO Q46H PRN #200 ml 05/17/20 [Bromfed Dm Cough Syrup] Fluticasone Propionate [Flonase 1 spr NS DAILY #1 bottle 05/17/20 50mcg nasal spray 16gm] Allergies Nikolay
[2020-05-17 14:56] VITALS: BP 131/72; PULSE 85; RESP 16; TEMP 36.6
== END 2020-05-17 15:03 | disposition home or self-care (01) ==
PROVIDERS: Emergency Provider Nurse Practitioner; PCP Emergency Medicine
DX: J06.9 Acute upper respiratory infection, unspecified (principal); F17.210 Nicotine dependence, cigarettes, uncomplicated; Z88.0 Allergy status to penicillin
CPT/HCPCS: 87880; 99202; G0463

== ENCOUNTER 2020-06-18 16:11 | Emergency (ER) | payer MEDICAID, SELFPAY ==
--- NOTE | 2020-06-18 16:27 | XR_ITS ---
PROCEDURE INFORMATION: Exam: XR Left Foot Exam date and time: 06/18/2020 4:27 PM Age: 25 years old Clinical indication: Injury or trauma; Other: Stumped toe; Blunt trauma; Toes; Left lesser toe(s); Patient HX: C/O pain in 2nd toe TECHNIQUE: Imaging protocol: XR Left foot. Views: 3 or more views. COMPARISON: CR FTL3 FOOT-LT-3 VIEWS 08/01/2016 8:53 PM FINDINGS: Bones/joints: There is no evidence of acute fracture. There is no evidence of joint malalignment or dislocation. Soft tissues: There are no soft tissue masses or fluid collections. IMPRESSION: 1. No evidence of acute fracture. 2. No evidence of acute dislocation.
--- NOTE | 2020-06-18 17:01 | HMH.EDUTC ---
[facility] [place]ression: Left foot pain Injury of toe on left foot Qualifiers: Encounter type: initial encounter Qualified Code(s): S99.922A - Unspecified injury of left foot, initial encounter Disposition: Home, Self-Care Condition on Discharge: Good Instructions: DI for Foot Sprain Additional Instructions: Rest the extremity, Elevate the extremity as tolerated while you are resting. Take ibuprofen for pain. I sent in a prescription to your pharmacy. Follow up with Dr. Mora (podiatry) if you continue to have pain or issues with your foot. I put in a referral but you need to call his office and schedule an appointment. Follow up with your regular doctor. GO TO THE ER FOR ANY WORSENING SYMPTOMS Apply the mupirocin (antibiotic ointment) as directed. Prescriptions: Ibuprofen [Ibuprofen 600mg Tablet] 600 mg PO Q6HP PRN #30 tab PRN Reason: Mild Pain Transmission Status: Received by [facility] Mupirocin [Bactroban 2% Ointment 22gm tube] 1 applicatio TP TID 7 Days #1 tube Transmission Status: Received by [facility] Referrals: Chong Byrd MD [Primary Care Provider] - Dulce Maria Mora DPM [Staff Physician] - Time of Disposition: 17:19 Medical Decision Making - Medical Records Medical records reviewed: No: I reviewed the patient's medical records. - Graham Inquiry Pt receiving controlled substance: No Vital Signs: 06/18/20 17:03 06/18/20 17:33 Temperature 98.7 F 98 F Temperature Source Oral Pulse Rate 76 Pulse Rate [Right] 86 Respiratory Rate 14 14 Blood Pressure 122/85 Blood Pressure [Right Arm] 130/93 H Blood Pressure Mean [Right Arm] 105 Blood Pressure Source [Right Arm] Automatic Cuff Blood Pressure Position [Right Arm] Sitting 02 Sat by Pulse Oximetry 99 Oxygen Delivery Method Room Air [facility] [place] - General Stated complaint: AO04/29 lac to l 2nd toe Time Seen by Provider: 06/18/20 17:01 - History of Present Illness Provider Complaint: She states that she tripped last night and fell going up some steps. Since then she has had pain of her left second toe. - Related Data Previous Rx's Medication Instructions Recorded Brompheniramine/Pseudoephed/Dm 5 - 10 ml PO Q46H PRN #200 ml 05/17/20 [Bromfed Dm Cough Syrup] Fluticasone Propionate [Flonase 1 spr NS DAILY #1 bottle 05/17/20 50mcg nasal spray 16gm] levonorgestrel-ethinyl estradiol 1 tab PO DAILY #28 tab 05/18/20 0.1 mg-20 mcg tablet Ibuprofen [Ibuprofen 600mg 600 mg PO Q6HP PRN #30 tab 06/18/20 Tablet] Mupirocin [Bactroban 2% Ointment 1 applicatio TP TID 7 Days #1 tube 06/18/20 22gm tube] Allergies Allergy/AdvReac Type Severity Reaction Status Date / Time penicillin G [PENICILLIN G] Allergy Intermediate SWELLING Verified 05/17/20 14:29 erythromycin base Allergy Mild I-HIVES Verified 05/17/20 14:29 [ERYTHROMYCIN BASE] ARTIFICIAL STRAWBERRY Allergy Mild I-RASH Uncoded 12/19/19 10:21 [facility] History - Hepatitis A Screen Attestation statement:: This patient has been screened for Hepatitis A risk factors. I have reviewed the patient's past medical history: Yes Medical History: Reports:: Migraine Denies:: Cancer, Diabetes Mellitus Type 1, Diabetes Mellitus Type 2, Gall Bladder Disease, Gastroesophageal Reflux Disease(GERD), Gastrointestinal Bleed, Hypertension, MRSA Laterality Cases: Bilateral: Tonsillectomy Other Surgeries: Yes: , Other Amputation: No Fractures: No Comment: WISDOM TEETH REMOVED - Social History Smoking Status: Current every day smoker Tobacco Type: cigarettes # Packs/Day (cigarettes): 1 Alcohol Intake: never Substance Use Type: denies use Occupational Status: employed Housing: house Household Members: family, children Family Hx:: Cancer ROS Obtained: Yes All systems reviewed & no additional complaints - Constitutional Constitutional: Denies chills, Denies fever(s)
[2020-06-18 17:03] VITALS: BP 130/93; PULSE 86; RESP 14; TEMP 37.1; O2SAT 99; BMI 25.7
[2020-06-18 17:33] VITALS: BP 122/85; PULSE 76; RESP 14; TEMP 36.6
== END 2020-06-18 17:35 | disposition home or self-care (01) ==
PROVIDERS: Emergency Provider Nurse Practitioner Family; PCP Emergency Medicine
DX: S99.922A Unspecified injury of left foot, initial encounter (principal); W01.0XXA Fall on same level from slipping, tripping and stumbling without subsequent striking against object, initial encounter; Y92.019 Unspecified place in single-family (private) house as the place of occurrence of the external cause; G43.709 Chronic migraine without aura, not intractable, without status migrainosus; Z88.0 Allergy status to penicillin; F17.210 Nicotine dependence, cigarettes, uncomplicated
CPT/HCPCS: 73630; 99202; G0463

== ENCOUNTER 2020-07-21 10:19 | Emergency (ER) | payer MEDICAID, SELFPAY ==
[2020-07-21 10:40] VITALS: BP 129/84; PULSE 97; RESP 14; TEMP 36.9; O2SAT 100; BMI 30.7
--- NOTE | 2020-07-21 11:05 | HMH.EDUTC ---
[facility] [place]ression: Nausea & vomiting Qualifiers: Vomiting type: unspecified Vomiting Intractability: unspecified Qualified Code(s): R11.2 - Nausea with vomiting, unspecified Disposition: Home, Self-Care Condition on Discharge: Good Instructions: Medications and , Nausea and Vomiting-Adult Additional Instructions: ?? Avoid fruit juices, as these do not replace minerals and can actually increase diarrhea. ? Children and adults can use sports drinks to replenish electrolytes. Younger children and infants should use products formulated for children, like oral rehydration solutions. ? Eat food in small amounts and let your stomach recover. ? Get lots of rest. You may feel tired or weak. ? No greasy or fried foods for the next 24-48 hours BRAT diet Bananas Rice Apples and [place] ? Make sure to drink plenty of liquids ? Return if needed ? Straight to ER if any life threatening symptoms Get lab work as ordered by Dr Olson Follow up with OBGYN if you continue to have nausea for further treatment Try sucking on peppermint candy it may help with nausea Follow up with OBGYN ? Follow up with family doctor in the next 48-72 hours if no improvement or any worsening of symptoms Referrals: Chong Byrd MD [Primary Care Provider] - As needed Time of Disposition: 12:27 Medical Decision Making - Graham Inquiry Pt receiving controlled substance: No Graham was queried for this patient: No Vital Signs: 07/21/20 10:40 07/21/20 12:42 Temperature 98.5 F 98.5 F Temperature Source Tympanic Pulse Rate 98 H Pulse Rate [Right] 97 H Respiratory Rate 14 16 Blood Pressure 122/87 Blood Pressure [Right Arm] 129/84 Blood Pressure Mean [Right Arm] 99 02 Sat by Pulse Oximetry 100 - Lab Data Lab results reviewed: Yes: I reviewed the patient's lab results. Lab Results 07/21/20 10:48: Urine Color Yellow, Urine Appearance Clear, Urine pH 6.0, Ur Specific [place] 1.010, Urine Protein Negative, Urine Glucose (UA) Negative, Urine Ketones Negative, Urine Blood Negative, Urine Nitrate Negative, Urine Bilirubin Negative, Urine Urobilinogen 0.2, Ur Leukocyte Esterase Negative, Tst Clinic Negative 07/21/20 11:11: HCG, Quant 55 H Medical Decision Narrative: Lab work discussed with patient and she agreed will follow up with Dr Olson if nausea continues and for further evaluation due to + Qual HCG [facility] [place] - General Stated complaint: lt abdominal pain Time Seen by Provider: 07/21/20 11:05 Mode of Arrival: Ambulatory Source of Information: Patient Limitations: No Limitations Description of Symptoms (Recalled from Triage Doc. by RN): pt is having sharp LLQ abd pain. she states she is late for her period. first day of last period was 06/15/20 HEENT Symptoms (Recalled from RN notes): No Resp Symptoms (Recalled from RN notes): No Skin Symptoms (Recalled from RN notes): No MS Symptoms (Recalled from RN notes): No Functional Status (Recalled from RN notes): na - History of Present Illness Provider Complaint: Patient states that her child has had a stomach bug State that she thinks she has it now also States that she has been having nausea and her abdomen feels like it is churning and then she vomit on and off x 3 days States that also she wants to get tested for States that she is late on her period and took 6 home and they was positive Denies pain at this time - Related Data Previous Rx's Medication Instructions Recorded Brompheniramine/Pseudoephed/Dm 5 - 10 ml PO Q46H PRN #200 ml 05/17/20 [Bromfed Dm Cough Syrup] Fluticasone Propionate [Flonase 1 spr NS DAILY #1 bottle 05/17/20 50mcg nasal spray 16gm] levonorgestrel-ethinyl estradiol 1 tab PO DAILY #28 tab 05/18/20 0.1 mg-20 mcg tablet Ibuprofen [Ibuprofen 600mg 600 mg PO Q6HP PRN #30 tab 06/18/20 Tablet] Mupirocin [Bactroban 2% Ointment 1 applicatio TP TID 7 Days #1 tube 06/18/20 22gm tube] promethazine
[2020-07-21 11:21] LABS: Apearance,Urine Clear (Clear); Color,Urine Yellow (Yellow); Glucose,Urine (UA) Negative (Negative); Protein,Urine Negative (Negative)
[2020-07-21 11:22] LABS: Bilirubin,Urine Negative (Negative); Blood, Urine Negative (Negative); Ketones,Urine Negative (Negative); UTC Leukocyte Esterase,Urine Negative (Negative); UTC Nitrate,Urine Negative (Negative); UTC Pregnancy Test, Urine Negative (Negative); Urobilinogen,Urine 0.2 EU/dl (0.2)
[2020-07-21 12:15] LABS: HCG,Quantitative 55 mIU/ml (0-5.42)
[2020-07-21 12:42] VITALS: BP 122/87; PULSE 98; RESP 16; TEMP 36.9
== END 2020-07-21 12:45 | disposition home or self-care (01) ==
PROVIDERS: Emergency Provider Nurse Practitioner; PCP Emergency Medicine
DX: R10.32 Left lower quadrant pain (principal); R11.2 Nausea with vomiting, unspecified; Z88.0 Allergy status to penicillin
CPT/HCPCS: 81003; 81025; 84702; 99202; G0463

== ENCOUNTER → 2020-07-23 10:39 | Outpatient (CLI) | payer MEDICAID, SELFPAY ==
[2020-07-23 12:10] LABS: Basophils # 0.1 K/mm3 (0-0.2); Basophils % 0.5 % (0.1-2.0); Eosinophils # 0.3 K/mm3 (0.0-0.4); Eosinophils % 2.7 % (0.1-12.0); Hematocrit 41.2 % (37.0-47.0); Hemoglobin 13.8 g/dL (12.2-16.2); Lymphocytes # 2.4 K/mm3 (0.7-4.5); Lymphocytes % 20.9 % (10-50); Mean Corpuscular HGB Conc 33.4 g/dL (31.8-35.4); Mean Corpuscular Hemoglobin 30.1 pg (27.0-31.2); Mean Corpuscular Volume 90.1 fl (81-99); Mean Platelet Volume 10.2 fl (7.4-10.4); Monocytes # 0.4 K/mm3 (0.1-1.0); Monocytes % 3.7 % (1.7-9.3); Neutrophils # 8.2 K/mm3 (1.8-7.8); Neutrophils % 72.2 % (37.0-80.0); Platelet Count 205 K/mm3 (142-424); Red Blood Count 4.57 M/mm3 (4.20-5.40); Red Cell Distribution Width 13.6 % (11.5-17.5); White Blood Count 11.3 K/mm3 (4.8-10.8)
[2020-07-23 12:46] LABS: HCG,Quantitative 147 mIU/ml (0-5.42)
[2020-07-24 06:11] LABS: HIV Screen 4th Generation wRfx Non Reactive (Non Reactive)
[2020-07-24 08:53] LABS: Hepatitis B Surface Antigen Negative (Negative); Hepatitis C Antibody <0.1 s/co ratio (0.0-0.9)
[2020-07-24 09:43] LABS: HSV 1 IgG, Type Spec <0.91 index (0.00-0.90); HSV 2 IgG, Type Spec <0.91 index (0.00-0.90)
[2020-07-24 10:43] LABS: Rapid Plasma Reagin Ab Titer Non Reactive (NonRea<1:1)
== END ==
PROVIDERS: Visit Provider Nurse Practitioner Obstetrics & Gynecology
DX: Z34.90 Encounter for supervision of normal pregnancy, unspecified, unspecified trimester (principal)
CPT/HCPCS: 36415; 84702; 85025; 86592; 86695; 86703; 86762; 86790; 86850; 87340; 87380; G0432

== ENCOUNTER → 2020-08-02 13:17 | Outpatient (CLI) | payer MEDICAID, SELFPAY ==
--- NOTE | 2020-08-02 13:17 | US_ITS ---
PROCEDURE: US OB <= 14 WEEKS FETUS CLINICAL INDICATION: US OB DATES Before 14 wks COMPARISON: No exams were available for comparison FINDINGS: There is a single intrauterine with gestational sac and yolk sac with no pole. Mean sac diameter is 8 millimeters. Findings may represent a early intrauterine or spontaneous . Correlation with quantitative serial beta HCG and follow-up ultrasound is recommended. 2 centimeter probable right corpus luteal ovarian cyst. No free fluid in the pelvis. Left ovary is normal. IMPRESSION: Single intrauterine with gestational sac and yolk sac with no pole yet identified. Mean sac diameter is 8 millimeters. Findings may represent an early intrauterine or spontaneous . Correlation with quantitative serial beta hCG and follow-up ultrasound is recommended. 2 centimeter probable right corpus luteal ovarian cyst. Dictated by: Garth Huff 08/02/2020 15:51 Garth Huff in OV 08/02/2020 15:51
== END ==
PROVIDERS: PCP Emergency Medicine; Visit Provider Nurse Practitioner Obstetrics & Gynecology
DX: O26.841 Uterine size-date discrepancy, first trimester (principal)
CPT/HCPCS: 76801

== ENCOUNTER → 2020-08-12 12:33 | Outpatient (CLI) | payer MEDICAID, SELFPAY ==
--- NOTE | 2020-08-12 12:36 | US_ITS ---
PROCEDURE: US OB <= 14 WEEKS FETUS CLINICAL INDICATION: for dates COMPARISON: US US OB <= 14 WEEKS FETUS from 08/02/2020 FINDINGS: An intrauterine gestational sac is present with a pole with a crown-rump length of 0.94cm correlating to gestational age of 6weeks 6days. heart tones are present with an FHR of 138bpm. Yolk sac is noted. IMPRESSION: Live IUP with an average ultrasound age of 6 weeks 6 days Estimated due date by Ultrasound is 04/01/2021 Dictated by: Will Winchester MD 08/12/2020 15:06 Will Winchester MD in OV 08/12/2020 15:06
== END ==
PROVIDERS: PCP Emergency Medicine; Visit Provider Nurse Practitioner Obstetrics & Gynecology
DX: Z34.90 Encounter for supervision of normal pregnancy, unspecified, unspecified trimester (principal)
CPT/HCPCS: 76801

== ENCOUNTER → 2021-01-25 16:26 | Outpatient (CLI) | payer MEDICAID, SELFPAY | PROVIDERS: PCP Emergency Medicine; Visit Provider Nurse Practitioner | DX: Z20.822 Contact with and (suspected) exposure to COVID-19 (principal) | CPT/HCPCS: C9803; U0003; U0005 ==

== ENCOUNTER → 2021-03-02 15:35 | Outpatient (CLI) | payer MEDICAID, SELFPAY | PROVIDERS: Visit Provider Nurse Practitioner | DX: U07.1 COVID-19 (principal) | CPT/HCPCS: C9803; U0003; U0005 ==

== ENCOUNTER 2021-08-02 16:52 | Emergency (ER) | payer BC, MEDICAID, SELFPAY ==
[2021-08-02 17:40] VITALS: BP 128/82; PULSE 110; RESP 18; TEMP 36.7; O2SAT 96; BMI 30.4
--- NOTE | 2021-08-02 17:56 | HMH.EDUTC ---
[facility] [place] Clinical Impression: Nausea and vomiting Qualifiers: Vomiting type: unspecified Qualified Code(s): R11.2 - Nausea with vomiting, unspecified Disposition: Home, Self-Care Condition on Discharge: Good Instructions: Nausea and Vomiting-Adult, Ondansetron Additional Instructions: Drink extra fluids with and between meals. If you have difficulty drinking, try very small amounts of water or suck on ice chips. ? Avoid fruit juices, as these do not replace minerals and can actually increase diarrhea. ? Children and adults can use sports drinks to replenish electrolytes. Younger children and infants should use products formulated for children, like oral rehydration solutions. ? Eat food in small amounts and let your stomach recover. ? Get lots of rest. You may feel tired or weak. ? No greasy or fried foods for the next 24-48 hours BRAT diet Bananas Rice Apples and Desha ? Make sure to drink plenty of liquids ? Return if needed ? Straight to ER if any life threatening symptoms ? Zofran as prescribed ? Follow up with family doctor in the next 48-72 hours if no improvement or any worsening of symptoms Prescriptions: Ondansetron [Zofran 4mg ODT] 4 mg PO TIDP PRN #10 tab PRN Reason: Nausea Transmission Status: Pending to [facility] Referrals: Chong Byrd MD [Primary Care Provider] - As needed Forms: Work/School Release Time of Disposition: 17:59 Medical Decision Making - Graham Inquiry Pt receiving controlled substance: No Graham was queried for this patient: No Vital Signs: 08/02/21 17:40 Temperature 98.1 F Temperature Source Oral Pulse Rate [Left Radial] 110 H Respiratory Rate 18 Blood Pressure [Right Arm] 128/82 Blood Pressure Mean [Right Arm] 97 02 Sat by Pulse Oximetry 96 [facility] [place] HPI - General Stated complaint: vomiting Time Seen by Provider: 08/02/21 17:56 Description of Symptoms (Recalled from Triage Doc. 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 States that last night the factory was very hot and she got sick at her stomach and vomited several times States that today she was still having a little N/V so she didnt go to work and came in to see if she could get something for the nausea - Related Data Home Medications Medication Instructions Recorded Confirmed PNV 153-FA 400 mcg-om3 35 mg-dha tab PO 07/23/20 07/23/20 25 mg-epa 5 mg-fish oil chew tablet Previous Rx's Medication Instructions Recorded promethazine 12.5 mg tablet 12.5 mg PO Q4-6H PRN #30 tab 07/21/20 vits no.126-ferrous fum 1 tab PO DAILY #30 tab 07/23/20 28 mg iron-folic acid 800 mcg tablet Ondansetron [Zofran 4mg ODT] 4 mg PO TIDP PRN #10 tab 08/02/21 Allergies Allergy/AdvReac Type Severity Reaction Status Date / Time penicillin G [PENICILLIN G] Allergy Intermediate SWELLING Verified 07/23/20 10:05 erythromycin base Allergy Mild I-HIVES Verified 07/23/20 10:05 [ERYTHROMYCIN BASE] ARTIFICIAL STRAWBERRY Allergy Mild I-RASH Uncoded 07/23/20 10:05 [facility] - Worker's Comp Is this a Worker's Comp case?: No [facility] History - Hepatitis A Screen Attestation statement:: This patient has been screened for Hepatitis A risk factors. I have reviewed the patient's past medical history: Yes Medical History: Reports:: Migraine Denies:: Cancer, Diabetes Mellitus Type 1, Diabetes Mellitus Type 2, Gall Bladder Disease, Gastroesophageal Reflux Disease(GERD), Gastrointestinal Bleed, Hypertension, MRSA Laterality Cases: Bilateral: Tonsillectomy Other Surgeries: Yes: , Other Amputation: No Fra
[2021-08-02 18:14] VITALS: BP 128/82; PULSE 110; RESP 18; TEMP 36.7
== END 2021-08-02 18:29 | disposition home or self-care (01) ==
PROVIDERS: Emergency Provider Nurse Practitioner; PCP Emergency Medicine
DX: R11.2 Nausea with vomiting, unspecified (principal); R53.82 Chronic fatigue, unspecified; G43.909 Migraine, unspecified, not intractable, without status migrainosus; F17.210 Nicotine dependence, cigarettes, uncomplicated; Z88.0 Allergy status to penicillin; Z88.1 Allergy status to other antibiotic agents; Z88.3 Allergy status to other anti-infective agents; Z83.511 Family history of glaucoma; Z82.49 Family history of ischemic heart disease and other diseases of the circulatory system; Z80.9 Family history of malignant neoplasm, unspecified; Z91.048 Other nonmedicinal substance allergy status
CPT/HCPCS: 99213; G0463

== ENCOUNTER 2021-11-14 17:44 | Emergency (ER) | payer BC, MEDICAID, SELFPAY ==
[2021-11-14 18:10] VITALS: BP 125/75; PULSE 89; RESP 19; TEMP 36.8; O2SAT 98; BMI 28.7
--- NOTE | 2021-11-14 18:26 | EXP.UTC ---
Discharge Plan Disposition Patient Disposition: Home, Self-Care Condition: Good Prescriptions Prescriptions: No Action Gummies 400 mcg-35 mg- 25 mg-5 mg tablet,chewable PO Classic 28 mg iron- 800 mcg tablet 1 tab PO DAILY Qty: 30 11RF promethazine 12.5 mg tablet 12.5 mg PO Q4-6H PRN (Reason: nausea and vomiting) Qty: 30 1RF ondansetron 4 MG tablet,disintegrating 4 mg PO TIDP PRN (Reason: Nausea) Qty: 10 0RF Referrals Follow up/Referrals: Chong Byrd MD [Primary Care Provider] - See instructions Activity Restrictions/Add. Instructions Additional Instructions/Restrictions: *Monitor Temp, Over the counter Motrin or Tylenol as directed/as needed Tylenol every 4 hours and Motrin every 6 hours (as long as your family doctor has told you that you can take it) for fever or pain. and straight to ER if unable to lower temp less than 101.0 after medication given *Warm salt water gargles may help to soothe the throat *Throat Lozenges? *Warm fluids like tea with honey may help to soothe the throat? *Sleep elevated *Humidifier/Vaporizer Follow up IMMEDIATELY for new or worsening symptoms or no Noticeable improvement over the next 48-72 hours. 911 for difficulty breathing or swallowing You were tested for today for COVID19 your test result should be back in the next 24-48 hours, you may check your results on the [facility] My Health Portal Make sure to take your Vitamins Vit. C Vit D and Zinc if you can take them Clinical Impressions Clinical Impression: Viral syndrome Stand Alone Forms Stand Alone Forms: Work/School Release Instructions Patient Instructions: Coronavirus Disease 2019, Preventing the Spread of Coronavirus Discharge Instructions Discharge ED Provider: Mendy Chou [facility] [place] HPI General Stated complaint: covid swab Mode of Arrival: Ambulatory Source of Information: Patient Limitations: No Limitations Time Seen by Provider: 11/14/21 18:26 Description of Symptoms (Recalled from Triage Doc. by RN): PATIENT C/O BODY ACHES AND HEADACHE SINCE THIS MORNING. REPORTS A POSITIVE AT HOME COVID TEST HEENT Symptoms (Recalled from RN notes): Yes Resp Symptoms (Recalled from RN notes): No Skin Symptoms (Recalled from RN notes): No MS Symptoms (Recalled from RN notes): No Functional Status (Recalled from RN notes): WNL History of Present Illness Provider Complaint: Patient states that she woke up this morning not feeling well States that she has been having body aches, chills, headache and stuffy nose States that she took a home COVID test and it showed positive so she came in to get a PCR test Related Data Home Medications Medication Instructions Recorded Confirmed PNV 153-FA 400 mcg-om3 35 mg-dha tab PO 07/23/20 07/23/20 25 mg-epa 5 mg-fish oil chew tablet ( Gummies) Previous Rx's Medication Instructions Recorded promethazine 12.5 mg tablet 12.5 mg PO Q4-6H PRN nausea and 07/21/20 vomiting #30 tabs vits no.126-ferrous fum 1 tab PO DAILY #30 tabs 07/23/20 28 mg iron-folic acid 800 mcg tablet (Classic ) ondansetron 4 mg disintegrating 4 mg PO TIDP PRN Nausea #10 tabs 08/02/21 tablet Allergies Allergy/AdvReac Type Severity Reaction Status Date / Time penicillin G [PENICILLIN G] Allergy Intermediate SWELLING Verified 07/23/20 10:05 erythromycin base Allergy Mild I-HIVES Verified 07/23/20 10:05 [ERYTHROMYCIN BASE] ARTIFICIAL STRAWBERRY Allergy Mild I-RASH Uncoded 07/23/20 10:05 FLAVORING Worker's Comp Is this a Worker's Comp case?: No [facility] Medical History (Updated 11/14/21 @ 18:29 by Mendy Chou APRN) No significant past medical history Social History Smoking Status: Current every day smoker tobacco type: cigarettes packs per day: 1 second hand exposure: No alcohol intake: never substance use type: denies use cu
[2021-11-14 18:32] VITALS: BP 125/75; PULSE 89; RESP 19; TEMP 36.8; O2SAT 98
== END 2021-11-14 18:37 | disposition home or self-care (01) ==
PROVIDERS: Emergency Provider Nurse Practitioner; PCP Emergency Medicine
DX: B34.9 Viral infection, unspecified (principal); R11.2 Nausea with vomiting, unspecified; M79.10 Myalgia, unspecified site; R51.9 Headache, unspecified; F17.210 Nicotine dependence, cigarettes, uncomplicated; Z20.822 Contact with and (suspected) exposure to COVID-19; Z79.899 Other long term (current) drug therapy; Z88.0 Allergy status to penicillin; Z88.1 Allergy status to other antibiotic agents; Z88.3 Allergy status to other anti-infective agents; Z88.8 Allergy status to other drugs, medicaments and biological substances; Z91.018 Allergy to other foods
CPT/HCPCS: 99213; C9803; G0463; U0003; U0005

== ENCOUNTER → 2021-11-22 03:44 | Outpatient (CLI) | payer BC, MEDICAID, SELFPAY ==
[2021-11-22 04:04] LABS: Adenovirus,PCR Not Detected (NotDetected); Bordetella Pertussis Not Detected (NotDetected); Chlamydophila Pneumoniae, PCR Not Detected (NotDetected); Coronavirus 229E Not Detected (NotDetected); Coronavirus NL63 Not Detected (NotDetected); Coronavirus OC43 Not Detected (NotDetected); Coronovirus HKU1,PCR Not Detected (NotDetected); Human Metapneumovirus Not Detected (NotDetected); Influenza A, PCR Not Detected (NotDetected); Influenza AH1, 2009 Not Detected (NotDetected); Influenza AH1, PCR Not Detected (NotDetected); Influenza AH3,PCR Not Detected (NotDetected); Influenza B, PCR Not Detected (NotDetected); Mycoplasma Pneumoniae, PCR Not Detected (NotDetected); Parainfluenza 1, PCR Not Detected (NotDetected); Parainfluenza 2, PCR Not Detected (NotDetected); Parainfluenza 3, PCR Not Detected (NotDetected); Parainfluenza 4, PCR Not Detected (NotDetected); Respiratory Syncytial Virus Not Detected (NotDetected); Rhinovirus/Enterovirus Not Detected (NotDetected)
[2021-11-22 06:23] LABS: Coronavirus 19, PCR Detected (NotDetected)
== END ==
PROVIDERS: PCP Emergency Medicine; Visit Provider Emergency Medicine
DX: U07.1 COVID-19 (principal); R51.9 Headache, unspecified; J02.9 Acute pharyngitis, unspecified; R05.9 Cough, unspecified; R09.89 Other specified symptoms and signs involving the circulatory and respiratory systems
CPT/HCPCS: 87581; 87632; 87798; C9803; U0003; U0005

== ENCOUNTER 2022-06-20 19:31 | Emergency (ER) | payer BC, MEDICAID, SELFPAY ==
[2022-06-20 19:32] VITALS: BP 148/77; PULSE 75; RESP 17; TEMP 36.8; O2SAT 100; BMI 29.2
--- NOTE | 2022-06-20 19:44 | EXP.UTC ---
Discharge Plan Disposition Patient Disposition: Home, Self-Care Condition: Good Prescriptions Prescriptions: New ibuprofen [IBU] 800 mg tablet 800 mg PO Q8HP PRN (Reason: Moderate Pain) Qty: 30 0RF No Action Gummies 400 mcg-35 mg- 25 mg-5 mg tablet,chewable PO Classic 28 mg iron- 800 mcg tablet 1 tab PO DAILY Qty: 30 11RF promethazine 12.5 mg tablet 12.5 mg PO Q4-6H PRN (Reason: nausea and vomiting) Qty: 30 1RF ondansetron 4 MG tablet,disintegrating 4 mg PO TIDP PRN (Reason: Nausea) Qty: 10 0RF Referrals Follow up/Referrals: Chong Byrd MD [Primary Care Provider] - See instructions Activity Restrictions/Add. Instructions Additional Instructions/Restrictions: Go home and rest. It would be best if you rested tomorrow too. Follow up with your regular doctor. GO TO THE ER FOR ANY WORSENING SYMPTOMS OR CONCERN Clinical Impressions Clinical Impression: Migraine Stand Alone Forms Stand Alone Forms: Work/School Release Instructions Patient Instructions: Migraine -- Adult, DI for Migraine, Ketorolac Injection, Dexamethasone Injection Discharge ED Provider: Garth Freitas [facility] [place] HPI General Stated complaint: Migraine X2 days with vomiting Time Seen by Provider: 06/20/22 19:44 History of Present Illness Provider Complaint: She states that she has had a migraine headache since yesterday. she was unable to go to work today, so she came here to try to get it better. She has a history of migraines with aura. She states that this is like her normal migraine, but it has went on longer and been resistant to the ibuprofen that she normally takes for them. Related Data Home Medications Medication Instructions Recorded Confirmed PNV 153-FA 400 mcg-om3 35 mg-dha tab PO 07/23/20 07/23/20 25 mg-epa 5 mg-fish oil chew tablet ( Gummies) Previous Rx's Medication Instructions Recorded promethazine 12.5 mg tablet 12.5 mg PO Q4-6H PRN nausea and 07/21/20 vomiting #30 tabs vits no.126-ferrous fum 1 tab PO DAILY #30 tabs 07/23/20 28 mg iron-folic acid 800 mcg tablet (Classic ) ondansetron 4 mg disintegrating 4 mg PO TIDP PRN Nausea #10 tabs 08/02/21 tablet ibuprofen 800 mg tablet (IBU) 800 mg PO Q8HP PRN Moderate Pain 06/20/22 #30 tabs Allergies Allergy/AdvReac Type Severity Reaction Status Date / Time penicillin G [PENICILLIN G] Allergy Intermediate SWELLING Verified 07/23/20 10:05 erythromycin base Allergy Mild I-HIVES Verified 07/23/20 10:05 [ERYTHROMYCIN BASE] ARTIFICIAL STRAWBERRY Allergy Mild I-RASH Uncoded 07/23/20 10:05 FLAVORING [facility] Disclaimer: The information contained in this section may have been updated after the patient was seen, as this information can be updated by other users. Medical History No significant past medical history Social History Smoking Status: Current every day smoker tobacco type: cigarettes packs per day: 1 second hand exposure: No alcohol intake: never substance use type: denies use current occupational status: employed Travel in the last 8 weeks: None household members: family and children housing: house ROS Obtained: Yes All systems reviewed & no additional complaints except as documented Constitutional Constitutional: Denies chills and Denies fever(s) Eyes Eyes: Denies eye discharge ENT Ears, Nose, Mouth, and Throat: Denies dizziness, Denies otalgia and Denies sore throat Cardiovascular Cardiovascular: Denies chest pain Respiratory Respiratory: Denies shortness of breath, Denies chest congestion, Denies cough, Denies stridor and Denies wheezing Gastrointestinal Gastrointestingal: Denies nausea or vomiting Musculoskeletal Musculoskeletal: Reports system reviewed and no additional complaints, except as documented and Denies arthr
[2022-06-20 20:06] VITALS: BP 148/77; PULSE 75; RESP 18; TEMP 36.8; O2SAT 100
== END 2022-06-20 20:07 | disposition home or self-care (01) ==
PROVIDERS: Emergency Provider Nurse Practitioner Family; PCP Emergency Medicine
DX: G43.909 Migraine, unspecified, not intractable, without status migrainosus (principal); R11.10 Vomiting, unspecified; F17.210 Nicotine dependence, cigarettes, uncomplicated
CPT/HCPCS: 96372; 99212; 99214; G0463

== ENCOUNTER 2022-12-03 21:49 | Emergency (ER) | payer BC, MEDICAID, SELFPAY ==
[2022-12-03 22:00] VITALS: BP 117/84; PULSE 86; RESP 15; TEMP 36.7; O2SAT 100; BMI 29.2
--- NOTE | 2022-12-03 22:06 | XR_ITS ---
PROCEDURE INFORMATION: Exam: XR Right Foot Exam date and time: 12/03/2022 10:02 PM Age: 27 years old Clinical indication: Injury or trauma; Other: Tool cart ran over foot; Work related; Swelling (edema); Right; Additional info: Foot vs. Equipment TECHNIQUE: Imaging protocol: Radiologic exam of the right foot. Views: 3 or more views. COMPARISON: CR [id number] 02/06/2017 3:37 PM FINDINGS: Bones/joints: No acute fracture or malalignment. Soft tissues: Normal. IMPRESSION: No acute osseous findings.
--- NOTE | 2022-12-03 22:16 | HMH.EDGENADL ---
Discharge Plan Disposition Patient Disposition: Home, Self-Care Chief Complaint: Extremity Injury, Lower Prescriptions Prescriptions: No Action Gummies 400 mcg-35 mg- 25 mg-5 mg tablet,chewable PO Classic 28 mg iron- 800 mcg tablet 1 tab PO DAILY Qty: 30 11RF promethazine 12.5 mg tablet 12.5 mg PO Q4-6H PRN (Reason: nausea and vomiting) Qty: 30 1RF ondansetron 4 MG tablet,disintegrating 4 mg PO TIDP PRN (Reason: Nausea) Qty: 10 0RF ibuprofen [IBU] 800 mg tablet 800 mg PO Q8HP PRN (Reason: Moderate Pain) Qty: 30 0RF Referrals Follow up/Referrals: Chong Byrd MD [Primary Care Provider] - See instructions Ferny Abernathy DO [Staff Physician] - See instructions Activity Restrictions/Add. Instructions Additional Instructions/Restrictions: At this time is felt you are safe to be discharged home. Please wear your hard soled shoe for comfort and bear weight on your foot as tolerated. If persistent symptoms please call and schedule an appointment for follow-up with Dr. Abernathy. Clinical Impressions Clinical Impression: Foot trauma Discharge ED Provider: Urbano Lord [facility] HPI General Chief complaint: Extremity Injury, Lower Stated complaint: [id number] right foot injury Time Seen by Provider: 12/03/22 22:00 Mode of Arrival: Family Vehicle Source of Information: Patient Limitations: No Limitations Description of Symptoms (Recalled from ER Triage Doc. by RN): 27 yo female presents with CC of right medial distal foot injury. Pt reports injury at work where she says the forklift glanced off the side of foot. Notable bruising to site, and reported tingling with flexion or dorsiflexion. Able to ambulate without assistance, but is painful /10. Does not consider this a worker's comp per her statement. History of Present Illness HPI narrative: Patient is a 27-year-old female with no pertinent past medical history presents emergency department for evaluation of traumatic injury to her foot. Patient was at work yesterday when she was struck by a pallet on her right distal medial foot over her metatarsal phalangeal joint. She she has been able to bear weight with pain. No other acute complaints at this time. Related Data Home Medications Medication Instructions Recorded Confirmed PNV 153-FA 400 mcg-om3 35 mg-dha tab PO 07/23/20 07/23/20 25 mg-epa 5 mg-fish oil chew tablet ( Gummies) Previous Rx's Medication Instructions Recorded promethazine 12.5 mg tablet 12.5 mg PO Q4-6H PRN nausea and 07/21/20 vomiting #30 tabs vits no.126-ferrous fum 1 tab PO DAILY #30 tabs 07/23/20 28 mg iron-folic acid 800 mcg tablet (Classic ) ondansetron 4 mg disintegrating 4 mg PO TIDP PRN Nausea #10 tabs 08/02/21 tablet ibuprofen 800 mg tablet (IBU) 800 mg PO Q8HP PRN Moderate Pain 06/20/22 #30 tabs Allergies Allergy/AdvReac Type Severity Reaction Status Date / Time penicillin G [PENICILLIN G] Allergy Intermediate SWELLING Verified 07/23/20 10:05 erythromycin base Allergy Mild I-HIVES Verified 07/23/20 10:05 [ERYTHROMYCIN BASE] ARTIFICIAL STRAWBERRY Allergy Mild I-RASH Uncoded 07/23/20 10:05 FLAVORING PFSH PFS Disclaimer: The information contained in this section may have been updated after the patient was seen, as this information can be updated by other users. Medical History No significant past medical history Social History Smoking Status: Unknown if ever smoked second hand exposure: No alcohol intake: never substance use type: denies use current occupational status: employed Travel in the last 8 weeks: None household members: family and children housing: house ROS Obtained: Yes Systems reviewed as appropriate & no additional complaints except as documented Physical Exam General Ge
--- NOTE | 2022-12-03 22:16 | PC.NURSE ---
back from rad
[2022-12-03 22:36] VITALS: BP 126/88; PULSE 80; RESP 16; TEMP 36.9; O2SAT 100
== END 2022-12-03 22:40 | disposition home or self-care (01) ==
PROVIDERS: Emergency Provider Emergency Medicine; PCP Emergency Medicine
DX: S99.921A Unspecified injury of right foot, initial encounter (principal); W22.8XXA Striking against or struck by other objects, initial encounter
CPT/HCPCS: 73630; 99283

== ENCOUNTER 2024-03-31 22:50 | Emergency (ER) | payer MEDICAID, SELFPAY ==
[2024-03-31 22:53] VITALS: BP 134/76; PULSE 91; RESP 18; TEMP 36.6; O2SAT 100; BMI 31.6
[2024-03-31 23:01] LABS: Influenza A, PCR Not Detected (NotDetected); Influenza B, PCR Not Detected (NotDetected)
[2024-03-31 23:30] VITALS: BP 101/72; PULSE 95; O2SAT 100
[2024-03-31 23:34] LABS: Coronavirus 19, PCR Detected (NotDetected)
[2024-04-01 00:01] VITALS: BP 132/93; PULSE 103; O2SAT 100
--- NOTE | 2024-04-01 00:01 | HMH.EDGENADL ---
Discharge Plan Disposition Patient Disposition: Home, Self-Care Condition: Good Prescriptions Prescriptions: New ondansetron 4 mg tablet,disintegrating 4 mg PO Q6H PRN (Reason: nausea and vomiting) Qty: 7 0RF No Action Gummies 400 mcg-35 mg- 25 mg-5 mg tablet,chewable PO Classic 28 mg iron- 800 mcg tablet 1 tab PO DAILY Qty: 30 11RF promethazine 12.5 mg tablet 12.5 mg PO Q4-6H PRN (Reason: nausea and vomiting) Qty: 30 1RF ondansetron 4 MG tablet,disintegrating 4 mg PO TIDP PRN (Reason: Nausea) Qty: 10 0RF ibuprofen [IBU] 800 mg tablet 800 mg PO Q8HP PRN (Reason: Moderate Pain) Qty: 30 0RF Referrals Follow up/Referrals: Maribell Randhawa APRN [Primary Care Provider] - See instructions Activity Restrictions/Add. Instructions Additional Instructions/Restrictions: You were evaluated in the ER and are appropriate for discharge at this time. You are positive for COVID. Wash your hands and try to avoid spreading your illness to others. Take Tylenol (acetaminophen) and ibuprofen if needed for fever, body aches. Do not exceed the recommended dose on the bottle. Drink water and eat a small snack each time you take these medications to avoid side effects. Take the prescribed ondansetron if needed for nausea. Drink plenty of water, Pedialyte, and Gatorade to maintain good hydration. Make an appointment with your primary care doctor for reevaluation in a few days. Return to the ER with new, worsening, or otherwise concerning symptoms. Clinical Impressions Clinical Impression: COVID Stand Alone Forms Stand Alone Forms: Work/School Release Print Language Print Language: Maltese Discharge ED Provider: Gunner Loo [facility] Adult HPI General Chief complaint: Fever Stated complaint: exp flu-sore throat, PARK fever Time Seen by Provider: 03/31/24 23:55 Mode of Arrival: Ambulatory Source of Information: Patient Limitations: No Limitations Description of Symptoms (Recalled from ER Triage Doc. by RN): Pt presents for evaluation of cough, fever (101.2) took motrin at 9pm tonight, and runny nose. Pt states she was exposed to flu A History of Present Illness HPI narrative: 29-year-old female who reports no chronic medical conditions presents to the ER for cough, fever of 101.2 at home, runny nose, body aches. She reports she has been exposed to influenza recently. She reported to me that she took Tylenol prior to arrival and has not taken any ibuprofen or Motrin. She reports she has also had nausea with few episodes of emesis but no abdominal pain, constipation, diarrhea, no numbness, tingling, or weakness, no chest pain or difficulty breathing, no other associated symptoms. No dysuria or hematuria. History of tubal. Related Data Home Medications ?Medication ?Instructions ?Recorded ?Confirmed PNV 153-FA 400 mcg-om3 35 mg-dha tab PO 07/23/20 07/23/20 25 mg-epa 5 mg-fish oil chew tablet ( Gummies) Previous Rx's ?Medication ?Instructions ?Recorded promethazine 12.5 mg tablet 12.5 mg PO Q4-6H PRN nausea and 07/21/20 vomiting #30 tabs vits no.126-ferrous fum 1 tab PO DAILY #30 tabs 07/23/20 28 mg iron-folic acid 800 mcg tablet (Classic ) ondansetron 4 mg disintegrating 4 mg PO TIDP PRN Nausea #10 tabs 08/02/21 tablet ibuprofen 800 mg tablet (IBU) 800 mg PO Q8HP PRN Moderate Pain 06/20/22 #30 tabs ondansetron 4 mg disintegrating 4 mg PO Q6H PRN nausea and 04/01/24 tablet vomiting #7 tabs Allergies Allergy/AdvReac Type Severity Reaction Status Date / Time penicillin G (PENICILLIN G) Allergy Intermediate SWELLING Verified 07/23/20 10:05 erythromycin base Allergy Mild I-HIVES Verified 07/23/20 10:05 (ERYTHROMYCIN BASE) ARTIFICIAL STRAWBERRY Allergy Mild I-RASH Uncoded 07/23/20 10:05 FLAVORING PFSH PFSH Disclaimer: The information contained in this section may have been updated after the patient was seen, as this information can be updated by other users. Medical History No significant past medical history Social History Smoking Status: Current every day smoker tobacco type: cigarettes packs per day: 1 second hand exposure: No alcohol intake: never substance use type: denies use current occupational status: employed Travel in the last 8 weeks: None household members: family and children housing: house Have you lived/traveled outside US in past 30 days?: No Contact w/someone who lives/traveled outside US past 30 days?: No Exposure to someone with infectious disease in past 14 days?: No Do you have a fever (greater than 100.4 F or 38 C)?: Yes Have you tested positive for COVID-19: No Exposed to someone with COVID-19 in past 14 days?: No Do you have a sore throat?: Yes Do you have a cough?: No Do you have any weakness?: No Do you have any diarrhea?: No Are you experiencing any unusual bleeding?: No Do you have any muscle aches/pain?: No Do you have any abdominal pain?: No Are you experiencing loss of taste or smell?: No Other Medical History Have you received the Flu Vaccine for this season: No Have you received the Pneumonia Vaccine: No ROS Obtained: Yes Systems reviewed as appropriate & no additional complaints except as documented Per HPI Physical Exam General General appearance: alert and in no apparent distress Head Head exam: atraumatic and normocephalic Eye Eye exam: Present PERRL and EOMI ENT ENT exam: Present mucous membranes moist and other (Mildly erythematous posterior oropharynx without tonsillomegaly or exudate) Neck Neck exam: Present normal inspection and full ROM; Absent lymphadenopathy Chest Chest inspection: Present symmetric chest wall rise Respiratory Respiratory exam: Present normal lung sounds bilaterally; Absent respiratory distress, wheezes or stridor Cardiovascular Cardiovascular exam: Present regular rate and normal rhythm Abdominal Exam Abdominal exam: Present soft; Absent distention, tenderness, guarding or rebound Extremities Exam Extremities exam: Present full ROM; Absent tenderness or edema Neurological Exam Neurological exam: Present alert and oriented X3; Absent motor sensory deficit Psychiatric Psychiatric exam: Present normal affect and normal mood Skin Skin exam: Present warm and dry Medical Decision Making Medical Records Medical records reviewed: Yes I reviewed the patient's medical records. Screening: Per USPSTF and CDC recommendations, given the prevalence of disease in our region, it is our hospital?s policy to screen for HIV and viral Hepatitis for all patients aged 18 and over and those with ongoing risk factors. MR Comment: Patient was evaluated in [facility] in June 2022 for concerns of migraine. Prescribed ibuprofen 800. Graham Inquiry Pt receiving controlled substance: No Vital Signs: 03/31/24 22:53 03/31/24 23:30 04/01/24 00:01 Temperature 97.8 F Temperature Source Oral Pulse Rate 95 H 103 H Pulse Rate [Right] 91 H Respiratory Rate 18 Blood Pressure 101/72 L 132/93 H Blood Pressure [Right Arm] 134/76 Blood Pressure Mean [Right Arm] 95 Blood Pressure Source [Right Arm] Automatic Cuff Blood Pressure Position [Right Arm] Sitting 02 Sat by Pulse Oximetry 100 100 100 Oxygen Delivery Method Room Air Room Air Room Air 04/01/24 00:13 Temperature 99.0 F Temperature Source Oral Pulse Rate 95 H Pulse Rate [Right] Respiratory Rate 20 Blood Pressure 132/93 H Blood Pressure [Right Arm] Blood Pressure Mean [Right Arm] Blood Pressure Source [Right Arm] Blood Pressure Position [Right Arm] 02 Sat by Pulse Oximetry Oxygen Delivery Method Room Air Lab Data Lab Results 03/31/24 22:57: SARS-CoV-2 (PCR) Detected A, Influenza A Untype (PCR) Not detected, Influenza Type B (PCR) Not detected Orders (Tests/Meds): ED MEDICATIONS Discontinued Medications Generic Name Dose Route Start Last Admin Trade Name Freq PRN Reason Stop Dose Admin Ibuprofen 600 mg 04/01/24 00:01 04/01/24 00:03 Ibuprofen 600 Mg Tablet PO 04/01/24 00:02 600 mg ONCE ONE Administration Ondansetron HCl 4 mg 04/01/24 00:01 04/01/24 00:03 Ondansetron 4mg Odt SL 04/01/24 00:02 4 mg ONCE ONE Administration ORDERS Category Date Time Status Rapid PCR Covid and Flu A/B Routine Lab 03/31/24 22:57 Completed Medical Decision Narrative: 29-year-old female reports being otherwise healthy presents to the ER with subjective fever, chills, nausea, cough, congestion, sore throat. Symptoms ongoing for 1 day. Patient took Tylenol prior to arrival. On initial evaluation patient is hemodynamically stable, afebrile, oropharynx clear though mildly erythematous, no tonsillomegaly or exudates, no lymphadenopathy, cardiopulmonary exam benign with good air movement throughout, saturating well on room air, no adventitious sounds, no peripheral edema, abdomen soft, nontender, nondistended. Benign abdominal exam. Differential diagnose includes but is not limited to viral syndrome including COVID, influenza, among others. I also did consider the possibility of strep however with the presence of cough and no lymphadenopathy this is much less likely, I do not believe strep test is indicated at this time. I considered pneumonia and considered performing chest x-ray however there is extremely low pretest probability since patient has only had symptoms for 1 day, no hypoxia or chest pain, and clear lungs bilaterally. Chest x-ray will not be performed. Viral swab ordered. Patient received ondansetron, ibuprofen for symptomatic management. She is tolerating oral intake. Labs reviewed by me demonstrate patient is positive for COVID. This unfortunately does explain all of her symptoms. Patient is appropriate for discharge at this time. Patient was given instructions on symptomatic management, follow up instructions, and return precautions for the emergency department. Patient indicated understanding and was discharged in stable condition. Critical Care Critical Care Time Critical Care Time: No
[2024-04-01] MEDS: ONDANSETRON 4MG ODT 4 MG SL (00:03)
[2024-04-01] MEDS: IBUPROFEN 600 MG TABLET PO (00:03)
[2024-04-01 00:13] VITALS: BP 132/93; PULSE 95; RESP 20; TEMP 37.2; O2SAT 99
== END 2024-04-01 00:26 | disposition home or self-care (01) ==
PROVIDERS: Emergency Medicine; Emergency Provider Emergency Medicine; PCP Nurse Practitioner Family
DX: U07.1 COVID-19 (principal); R50.9 Fever, unspecified; R05.9 Cough, unspecified; M79.10 Myalgia, unspecified site; R11.2 Nausea with vomiting, unspecified; F17.210 Nicotine dependence, cigarettes, uncomplicated; Z20.828 Contact with and (suspected) exposure to other viral communicable diseases
CPT/HCPCS: 87636; 99283; Q0162

== ENCOUNTER 2024-04-04 00:27 | Emergency (ER) | payer MEDICAID, SELFPAY ==
[2024-04-04 00:28] VITALS: BP 120/74; PULSE 79; RESP 18; TEMP 36.8; O2SAT 100; BMI 30.9
--- NOTE | 2024-04-04 00:55 | PC.NURSE ---
Rounding done; no needs at this time
--- NOTE | 2024-04-04 01:21 | HMH.EDGENADL ---
Discharge Plan Disposition Patient Disposition: Home, Self-Care Condition: Good Prescriptions Prescriptions: New Paxlovid 300 mg (150 mg x 2)-100 mg tablets,dose pack See Rx Instructions .ROUTE .COMPLEX Qty: 30 0RF Rx Instructions: take TWO 150 mg tablets of nirmatrelvir with ONE 100 mg tablet of ritonavir twice daily for 5 days No Action Gummies 400 mcg-35 mg- 25 mg-5 mg tablet,chewable PO Classic 28 mg iron- 800 mcg tablet 1 tab PO DAILY Qty: 30 11RF promethazine 12.5 mg tablet 12.5 mg PO Q4-6H PRN (Reason: nausea and vomiting) Qty: 30 1RF ondansetron 4 mg tablet,disintegrating 4 mg PO Q6H PRN (Reason: nausea and vomiting) Qty: 7 0RF ondansetron 4 MG tablet,disintegrating 4 mg PO TIDP PRN (Reason: Nausea) Qty: 10 0RF ibuprofen [IBU] 800 mg tablet 800 mg PO Q8HP PRN (Reason: Moderate Pain) Qty: 30 0RF Referrals Follow up/Referrals: Maribell Randhawa APRN [Primary Care Provider] - See instructions Activity Restrictions/Add. Instructions Additional Instructions/Restrictions: You were evaluated in the ER and are appropriate for discharge at this time. Take the prescribed Paxlovid as directed. If you have side effects, stop this medication. Continue taking Tylenol, ibuprofen, and the previously prescribed Zofran if needed. Follow-up with your primary care doctor for reevaluation in a few days. Return to the ER with new, worsening, or otherwise concerning symptoms. Clinical Impressions Clinical Impression: COVID, Myalgia Stand Alone Forms Stand Alone Forms: Work/School Release Print Language Print Language: Macedonian Discharge ED Provider: Gunner Loo General Adult HPI General Chief complaint: Upper Respiratory Infection Stated complaint: covid +, worsened symptoms Time Seen by Provider: 04/04/24 01:02 Mode of Arrival: Ambulatory Source of Information: Patient Limitations: No Limitations Description of Symptoms (Recalled from ER Triage Doc. by RN): pt was diagnosed here with COVID on sunday, today she reports the symptoms are worse. She has been more out of breath and having more body aches History of Present Illness HPI narrative: 29-year-old female known positive COVID presents to the ER because her symptoms are worsening. She states specifically she has worsening body aches, cough, congestion, and fatigue. She denies chest pain or pressure, no diarrhea or abdominal pain. She states her nausea and vomiting have been controlled by Zofran. She has not had documented fever. She has been taking Tylenol and ibuprofen, most recently 7 hours prior to arrival. On discussion with her, she is on day 3 of symptoms. She states she came back because she is not feeling better. No dysuria or hematuria, no other associated symptoms. Related Data Home Medications ?Medication ?Instructions ?Recorded ?Confirmed PNV 153-FA 400 mcg-om3 35 mg-dha tab PO 07/23/20 07/23/20 25 mg-epa 5 mg-fish oil chew tablet ( Gummies) Previous Rx's ?Medication ?Instructions ?Recorded promethazine 12.5 mg tablet 12.5 mg PO Q4-6H PRN nausea and 07/21/20 vomiting #30 tabs vits no.126-ferrous fum 1 tab PO DAILY #30 tabs 07/23/20 28 mg iron-folic acid 800 mcg tablet (Classic ) ondansetron 4 mg disintegrating 4 mg PO TIDP PRN Nausea #10 tabs 08/02/21 tablet ibuprofen 800 mg tablet (IBU) 800 mg PO Q8HP PRN Moderate Pain 06/20/22 #30 tabs ondansetron 4 mg disintegrating 4 mg PO Q6H PRN nausea and 04/01/24 tablet vomiting #7 tabs nirmatrelvir 300 mg (150 mg See Rx Instructions PO .COMPLEX 04/04/24 x2)-ritonavir 100 mg tablet,dose #30 tabs pack (Paxlovid) Allergies Allergy/AdvReac Type Severity Reaction Status Date / Time penicillin G (PENICILLIN G) Allergy Intermediate SWELLING Verified 07/23/20 10:05 erythromycin base Allergy Mild I-HIVES Verified 07/23/20 10:05 (ERYTHROMYCIN BASE) ARTIFICIAL STRAWBERRY Allergy Mild I-RASH Uncoded 07/23/20 10:05 FLAVORING PFSH PFSH Disclaimer: The information contained in this section may have been updated after the patient was seen, as this information can be updated by other users. Medical History No significant past medical history Social History Smoking Status: Never smoker second hand exposure: No alcohol intake: never substance use type: denies use current occupational status: employed Travel in the last 8 weeks: None household members: family and children housing: house Have you lived/traveled outside US in past 30 days?: No Contact w/someone who lives/traveled outside US past 30 days?: No Exposure to someone with infectious disease in past 14 days?: Yes Do you have a fever (greater than 100.4 F or 38 C)?: No Have you tested positive for COVID-19: Yes Exposed to someone with COVID-19 in past 14 days?: Yes Do you have a sore throat?: No Do you have a cough?: No Do you have any weakness?: No Do you have any diarrhea?: No Are you experiencing any unusual bleeding?: No Do you have any muscle aches/pain?: No Do you have any abdominal pain?: No Are you experiencing loss of taste or smell?: No Other Medical History Have you received the Flu Vaccine for this season: No Have you received the Pneumonia Vaccine: No ROS Obtained: Yes Systems reviewed as appropriate & no additional complaints except as documented per HPI Physical Exam General General appearance: alert and in no apparent distress Head Head exam: atraumatic and normocephalic Eye Eye exam: Present PERRL and EOMI ENT ENT exam: Present mucous membranes moist Neck Neck exam: Present normal inspection and full ROM Chest Chest inspection: Present symmetric chest wall rise Respiratory Respiratory exam: Present normal lung sounds bilaterally and other (Saturating 98 to 100% on room air with good air movement throughout, no adventitious sounds; oxygen saturation above 98% while ambulating in the ER); Absent respiratory distress, wheezes or stridor Cardiovascular Cardiovascular exam: Present regular rate and normal rhythm Abdominal Exam Abdominal exam: Present soft; Absent distention or tenderness Extremities Exam Extremities exam: Present full ROM; Absent edema Neurological Exam Neurological exam: Present alert, oriented X3, CN II-XII intact and normal gait; Absent motor sensory deficit Psychiatric Psychiatric exam: Present normal affect and normal mood Skin Skin exam: Present warm and dry Medical Decision Making Medical Records Medical records reviewed: Yes I reviewed the patient's medical records. Screening: Per USPSTF and CDC recommendations, given the prevalence of disease in our region, it is our hospital?s policy to screen for HIV and viral Hepatitis for all patients aged 18 and over and those with ongoing risk factors. MR Comment: Patient tested positive for COVID on 03/31/2024 Graham Inquiry Pt receiving controlled substance: No Vital Signs: 04/04/24 00:28 Temperature 98.3 F Temperature Source Oral Pulse Rate [Right] 79 Respiratory Rate 18 Blood Pressure [Right Arm] 120/74 Blood Pressure Mean [Right Arm] 89 02 Sat by Pulse Oximetry 100 Orders (Tests/Meds): ED MEDICATIONS Generic Name Dose Route Start Last Admin Trade Name Freq PRN Reason Stop Dose Admin Acetaminophen 1,000 mg 04/04/24 01:21 Acetaminophen 500mg Tab PO 04/04/24 01:22 ONCE ONE Ibuprofen 800 mg 04/04/24 01:21 Ibuprofen 200mg/10ml Susp Udc PO 04/04/24 01:22 ONCE ONE Medical Decision Narrative: In summary, 29-year-old female who is otherwise healthy and on no daily medications, no known drug allergies presents to the ER with complaints of worsening COVID symptoms. On initial evaluation she is hemodynamically stable, afebrile, saturating well on room air with normal heart rate, no chest tenderness, she does not have chest pain or difficulty breathing, no peripheral edema, benign abdominal exam. Patient unfortunately has worsening of her viral symptoms which is consistent with the expected viral course. She does not describe symptoms consistent with cardiac problem. I did additionally consider the possibility of pneumonia, electrolyte abnormality, however patient has clear lungs and no fever and no chest pain, she also has normal vitals, PERC negative, she has not had significant vomiting or diarrhea so I have very low concern for electrolyte abnormality and she appears clinically well-hydrated. I considered performing chest x-ray to evaluate lung parenchyma but I believe there is very low pretest probability for pneumonia and patient would rather not have the chest x-ray at this time. I believe this is reasonable and chest x-ray was not performed. Patient reports she has been taking Zofran which is controlled her nausea and vomiting mostly and she has been tolerating oral intake. She reports taking Tylenol and ibuprofen. She was asking if there is anything else she can take, we discussed the option of Paxlovid. Risk factors for severe symptoms include patient vaping and being overweight. We discussed risks and benefits of this medication. She is within the window to take this medication since she has had symptoms for less than 5 days and has mild to moderate symptoms. It was prescribed to her at her request. She also received Tylenol and ibuprofen in the ER for symptomatic management. She ambulated around the ER briskly with reassuring vitals, heart rate never became tachycardic, oxygen stayed above 98% and she was not short of breath or having other symptoms. She is appropriate for discharge at this time. Patient was given instructions on symptomatic management, follow up instructions, and return precautions for the emergency department. Patient indicated understanding and was discharged in stable condition. Critical Care Critical Care Time Critical Care Time: No
--- NOTE | 2024-04-04 01:27 | PC.NURSE ---
Ambulated Pt per the physicians request o2 sats stayed about 98%
[2024-04-04] MEDS: IBUPROFEN 800 MG TABLET PO (01:39)
[2024-04-04] MEDS: ACETAMINOPHEN 500MG TAB 1000 MG PO (01:39)
[2024-04-04 01:45] VITALS: BP 120/72; PULSE 72; RESP 16; TEMP 36.6; O2SAT 99
== END 2024-04-04 01:46 | disposition home or self-care (01) ==
PROVIDERS: Emergency Provider Emergency Medicine; PCP Nurse Practitioner Family
DX: U07.1 COVID-19 (principal); M79.10 Myalgia, unspecified site
CPT/HCPCS: 99283

== ENCOUNTER 2024-04-29 14:26 | Emergency (ER) | payer MEDICAID, SELFPAY ==
--- NOTE | 2024-04-29 14:31 | XR_ITS ---
FINAL REPORT CLINICAL HISTORY: Fall, rt wrist pain COMPARISON: 10/24/2017 FINDINGS: RIGHT WRIST Three views were obtained. There is no fracture or dislocation. The joint spaces appear normal. No soft tissue abnormality is identified. IMPRESSION: No acute process. Reviewed, Interpreted and Dictated by Yousuf Pepe MD Transcribed by Lynette Schulte Authenticated and [facility]
--- NOTE | 2024-04-29 14:31 | XR_ITS ---
FINAL REPORT CLINICAL HISTORY: Fall, rt hand pain COMPARISON: 01/06/2022 FINDINGS: RIGHT HAND Three views were obtained. There is no fracture or dislocation. The joint spaces appear normal. No soft tissue abnormality is identified. IMPRESSION: No acute process. Reviewed, Interpreted and Dictated by Yousuf Pepe MD Transcribed by Lynette Schulte Authenticated and [facility]
[2024-04-29 14:42] VITALS: BP 121/78; PULSE 98; RESP 18; TEMP 36.6; O2SAT 100; BMI 30.4
--- NOTE | 2024-04-29 14:57 | PC.NURSE ---
pt ambulatory to radiology
[2024-04-29 15:14] VITALS: BP 107/56; PULSE 86
--- NOTE | 2024-04-29 15:14 | ED_ITS ---
Discharge Plan Disposition Patient Disposition: Home, Self-Care Condition: Good Prescriptions Prescriptions: No Action ibuprofen [IBU] 800 mg tablet 800 mg PO Q8HP PRN (Reason: Moderate Pain) Qty: 30 0RF Referrals Follow up/Referrals: Maribell Randhawa APRN [Primary Care Provider] - See instructions Activity Restrictions/Add. Instructions Additional Instructions/Restrictions: Return to the emergency department with any worsening signs or symptoms. I recommend ibuprofen Tylenol, ice, wrist brace/splint, follow-up with primary care provider. Clinical Impressions Clinical Impression: Right wrist sprain Print Language Print Language: Kiswahili Discharge ED Provider: Urbano Lord General Adult HPI <MAURY Hendrix - Last Filed: 04/29/24 16:28> General Chief complaint: Extremity Injury, Upper Stated complaint: AO fall 04/28 right wrist pain Time Seen by Provider: 04/29/24 15:05 Mode of Arrival: Ambulatory Source of Information: Patient Description of Symptoms (Recalled from ER Triage Doc. by RN): Pt presents with c/o right wrist injury due to tripping over her dog. Pt has swelling and bruising to her wrist. Pt has limited range of motion, states when she tries to move her wrist there is sharp pain that shoots up her arm. Pt has strong pulse, brisk, cap refill. History of Present Illness HPI narrative: 29-year-old female presents emergency department with right wrist pain after what sounds like a fall on outstretched hand injury that happened last night. Patient states that she was going to stop her dog from getting into my food , she fell and tripped over the dog landing on her hand. Admits to pain and swelling in the right wrist, and the pain will shoot up her arm , has any numbness or tingling, denies any upper or lower extremity weakness, denies fever chills chest pain shortness of breath, denies any LOC, denies striking the head, denies abdominal pain nausea vomiting constipation diarrhea no urine type symptomatology. Patient has no other relevant past medical history takes no medications at home, occasionally utilizes tobacco (vapes), denies any alcohol or other drug use initial triage vitals unremarkable. Patient has tried some ice and ibuprofen with some relief of her symptomatology. Onset (ago): day(s) Related Data Previous Rx's ?Medication ?Instructions ?Recorded ibuprofen 800 mg tablet (IBU) 800 mg PO Q8HP PRN Moderate Pain 06/20/22 #30 tabs Allergies Allergy/AdvReac Type Severity Reaction Status Date / Time penicillin G (PENICILLIN G) Allergy Intermediate SWELLING Verified 04/29/24 14:47 erythromycin base Allergy Mild I-HIVES Verified 04/29/24 14:47 (ERYTHROMYCIN BASE) ARTIFICIAL STRAWBERRY Allergy Mild I-RASH Uncoded 07/23/20 10:05 FLAVORING PFSH <MAURY Hendrix - Last Filed: 04/29/24 16:28> PFS Disclaimer: The information contained in this section may have been updated after the patient was seen, as this information can be updated by other users. Medical History No significant past medical history Social History Smoking Status: Current every day smoker tobacco type: cigarettes packs per day: 1 second hand exposure: No alcohol intake: never substance use type: denies use current occupational status: employed Travel in the last 8 weeks: None household members: family and children housing: house Have you lived/traveled outside US in past 30 days?: No Contact w/someone who lives/traveled outside US past 30 days?: No Exposure to someone with infectious disease in past 14 days?: No Do you have a fever (greater than 100.4 F or 38 C)?: No Have you tested positive for COVID-19: No Exposed to someone with COVID-19 in past 14 days?: No Do you have a sore throat?: No Do you have a cough?: No Do you have any weakness?: No Do you have any diarrhea?: No Are you experiencing any unusual bleeding?: No Do you have any muscle aches/pain?: No Do you have any abdominal pain?: No Are you experiencing loss of taste or smell?: No Other Medical History Have you received the Flu Vaccine for this season: No Have you received the Pneumonia Vaccine: No <MAURY Hendrix - Last Filed: 04/29/24 16:28> ROS Obtained: Yes All systems reviewed & no additional complaints except as documented Physical Exam <MAURY Hendrix - Last Filed: 04/29/24 16:28> General General appearance: alert and in no apparent distress Head Head exam: atraumatic and normocephalic Eye Eye exam: Present PERRL and EOMI ENT ENT exam: Present mucous membranes moist Neck Neck exam: Present normal inspection Chest Chest inspection: Present normal inspection and symmetric chest wall rise Respiratory Respiratory exam: Present normal lung sounds bilaterally; Absent respiratory distress Cardiovascular Cardiovascular exam: Present regular rate and normal rhythm Abdominal Exam Abdominal exam: Present soft; Absent tenderness Extremities Exam Extremities exam: Present normal inspection, tenderness and other (There is no anatomical snuffbox tenderness to the right hand/wrist, there is some lateral and medial pain to palpation to the patient's right wrist, patient has some pain limited range of motion, but good finger opposition, otherwise neurovascular intact); Absent full ROM Neurological Exam Neurological exam: Present alert and oriented X3 Psychiatric Psychiatric exam: Present normal affect Skin Skin exam: Present warm and dry Medical Decision Making <MAURY Hendrix - Last Filed: 04/29/24 16:28> Medical Records Medical records reviewed: Yes I reviewed the patient's medical records. Screening: Per USPSTF and CDC recommendations, given the prevalence of disease in our region, it is our hospital?s policy to screen for HIV and viral Hepatitis for all patients aged 18 and over and those with ongoing risk factors. Graham Inquiry Pt receiving controlled substance: No Graham was queried for this patient: No Vital Signs: 04/29/24 14:42 04/29/24 15:14 Temperature 97.9 F Temperature Source Oral Pulse Rate 86 Pulse Rate [Right] 98 H Respiratory Rate 18 Blood Pressure 107/56 L Blood Pressure [Right Arm] 121/78 Blood Pressure Mean [Right Arm] 92 Blood Pressure Source [Right Arm] Automatic Cuff Blood Pressure Position [Right Arm] Sitting 02 Sat by Pulse Oximetry 100 Orders (Tests/Meds): ORDERS Category Date Time Status XR hand RT min 3V Stat Exams 04/29/24 14:31 Completed XR wrist RT min 3V Stat Exams 04/29/24 14:31 Completed Medical Decision Narrative: 29-year-old female presents emerged part with right wrist pain/hand injury after fall yesterday, differential diagnose include but limited to right wrist sprain/strain, hand sprain/strain, wrist fracture, metacarpal fracture. Discussed patient case with attending physician Will obtain x-rays of the right wrist and right hand for further evaluation as characterization. The patient's right wrist x-ray, right hand x-ray along the corresponding radiologic report, no acute process. I discussed with the patient at bedside, I recommend follow-up with PCP versus orthopedic provider. Recommend ice rest ibuprofen Tylenol will give wrist brace/splint. Patient return emerged part any worsening signs or symptoms. Patient most likely has right wrist sprain. <Urbano Lord MD - Last Filed: 04/29/24 16:31> Vital Signs: 04/29/24 14:42 04/29/24 15:14 Temperature 97.9 F Temperature Source Oral Pulse Rate 86 Pulse Rate [Right] 98 H Respiratory Rate 18 Blood Pressure 107/56 L Blood Pressure [Right Arm] 121/78 Blood Pressure Mean [Right Arm] 92 Blood Pressure Source [Right Arm] Automatic Cuff Blood Pressure Position [Right Arm] Sitting 02 Sat by Pulse Oximetry 100 Orders (Tests/Meds): ORDERS Category Date Time Status XR hand RT min 3V Stat Exams 04/29/24 14:31 Completed XR wrist RT min 3V Stat Exams 04/29/24 14:31 Completed Medical Decision Narrative: 29-year-old female presents emerged part with right wrist pain/hand injury after fall yesterday, differential diagnose include but limited to right wrist sprain/strain, hand sprain/strain, wrist fracture, metacarpal fracture. Discussed patient case with attending physician Will obtain x-rays of the right wrist and right hand for further evaluation as characterization. The patient's right wrist x-ray, right hand x-ray along the corresponding radiologic report, no acute process. I discussed with the patient at bedside, I recommend follow-up with PCP versus orthopedic provider. Recommend ice rest ibuprofen Tylenol will give wrist brace/splint. Patient return emerged part any worsening signs or symptoms. Patient most likely has right wrist sprain. I was consulted by the BETO, and we discussed the complexity of the problems being addressed. I approved the treatment and management plan for this patient's care in the emergency department, thus performing a substantive por tion of the medical decision making. Urbano Lord MD Critical Care <MAURY Hendrix - Last Filed: 04/29/24 16:28> Critical Care Time Critical Care Time: No
[2024-04-29 16:38] VITALS: BP 104/64; PULSE 91; RESP 18; TEMP 36.6; O2SAT 100
== END 2024-04-29 16:38 | disposition home or self-care (01) ==
PROVIDERS: Emergency Provider Emergency Medicine; PCP Nurse Practitioner Family
DX: S63.501A Unspecified sprain of right wrist, initial encounter (principal); M25.531 Pain in right wrist; F17.210 Nicotine dependence, cigarettes, uncomplicated; W01.0XXA Fall on same level from slipping, tripping and stumbling without subsequent striking against object, initial encounter; Y93.89 Activity, other specified; Y92.009 Unspecified place in unspecified non-institutional (private) residence as the place of occurrence of the external cause
CPT/HCPCS: 73110; 73130; 99283

== ENCOUNTER 2024-06-16 23:42 | Emergency (ER) | payer MEDICAID, SELFPAY ==
[2024-06-16 23:50] VITALS: BP 134/81; PULSE 100; RESP 22; TEMP 36.9; O2SAT 100; BMI 30.1
--- OUTSIDE RECORDS SUMMARY | 2024-06-16 23:58 | XMS_ITS | Data Portability ---
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 My recommendation was to begin with conservative management to include a corticosteroid injection of the involved trigger finger, to which patient consented for in clinic today. If this fails to improve symptoms or should symptoms return, I explained that we could either attempt one additional corticosteroid injection versus proceed with surgical trigger finger release at that time. Patient will continue OT/HEP and ongoing work restrictions at this time, however, she is eager to return to full duty work as soon as possible so she will return to office for recheck in 2 weeks. RTO as scheduled or sooner if needed, advised to call office with any questions/concern tawana garcia Not available 08/01/2022 14:14:07 08/17/2022 08/17/2022 Patient is pleased with significant improvement in pain after injection 2 weeks ago but continues to have intermittent triggering. Again I explained that if this fails to improve symptoms we could either attempt one additional corticosteroid injection versus proceed with surgical trigger finger release at that time. Patient will continue OT/HEP and ongoing work restrictions at this time and will return to office for recheck in 4 weeks. RTO as scheduled or sooner if needed, advised to call office with any questions/concern tawana garcia Not available 08/18/2022 14:55:07 09/14/2022 09/14/2022 Patient will continue OT/HEP and ongoing work restrictions at this time and will return to office for recheck in 6 weeks. Should symptoms persist at that time will discuss surgical intervention. RTO as scheduled or sooner if needed, advised to call office with any questions/concern sJareth jose Not available 09/21/2022 14:50:21 09/19/2022 09/19/2022 Patient is pleased with resolution of trigger finger symptoms after injection at last visit. Clinically presents well and denies pain. Patient is eager to return to full duty work at this time. Will declare MMI and return to work full duty. She will now return to office on as needed basis. Patient expressed understanding and was in agreement with this plan. jose Not available 09/26/2022 10:54:19 Plan of Treatment Reminders Order Date Submit Date Provider Last Modified By Organization Details Last Modified Time Details Appointments None record ed. Lab None record ed. Referral None record ed. Procedures None record ed. Surgeries None record ed. Imaging None record ed. Medication Orders None record ed. Patient TargetsNo targets recorded. Patient InstructionsNo instructions recorded. Reason for Referral None Reported. Problems No Known Problems Procedures Surgical History Date Name Laterality Status Provider Name and Address Organization Details Recorded Time 3 Injection Trigger Finger Ortho completed LAURA CIFUENTES PA-C [address] [place], [address], [facility] 09/21/2022 14:50:05 3 Injection Trigger Finger Ortho completed LAURA CIFUENTES PA-C [address] [place], [address], [facility] 08/01/2022 14:18:02 Imaging Results None recorded. Procedure Notes None recorded. Medical Equipment None Reported. Allergies No known drug allergies Medications Not known to be on any medication Vitals Date Recorded Body height Body mass index (BMI) Body weight Pain severity - 0-10 verbal numeric rating [Score] - Reported Provider Name and Address Organization Details Last Updated DateTime 08/01/2022 162.56 cm 30 kg/m2 87668.66 g 4 Abdiel Johnson [facility] 08/01/2022 13:13:41 Date Recorded Body height Body mass index (BMI) Body weight Provider Name and Address Organization Details Last Updated DateTime 08/17/2022 162.56 cm 30 kg/m2 17585.66 g Darcy Greco [facility] 08/17/2022 13:45:20 Date Recorded Body height Body mass index (BMI) Body weight Pain severity - 0-10 verbal numeric rating [Score] - Reported Provider Name and Address Organization Details Last Updated DateTime 09/14/2022 162.56 cm 30 kg/m2 47130.66 g 2 Abdiel Johnson [facility] 09/14/2022 13:01:00 Date Recorded Body height Body mass index (BMI) Body weight Pain severity - 0-10 verbal numeric rating [Score] - Reported Provider Name and Address Organization Details Last Updated DateTime 09/19/2022 162.56 cm 30 kg/m2 88749.66 g 0 Abdiel Johnson [facility] 09/19/2022 09:04:44 Social History None recorded. Functional Status None recorded. Mental Status None recorded. Family History Nothing Reported. Medical History No medical history recorded. Gynecological HistoryNo gynecological history recorded. Obstetrics History GPAL:G 0 P 0 0 0 0 Past Encounters Encounter ID Performer Location Encounter Start Date Encounter Closed Date Diagnosis/Indication Diagnosis SNOMED-CT Code Diagnosis ICD10 Code Diagnosis Note [id number] LAURA CIFUENTES PA-C [facility] [address] [place] [address] 08/01/2022 13:00:11 08/01/2022 13:30:08 Trigger finger of right hand [id number] M65.321 Right Index Trigger Finger - CSI: 08/01/22 [id number] LAURA CIFUENTES PA-C [facility] [address] [place] [address] 08/17/2022 13:34:18 08/17/2022 13:55:01 Trigger finger of right hand [id number] M65.321 Right Index Trigger Finger - CSI: 08/01/22 [id number] LAURA CIFUENTES PA-C [facility] [address] [place] [id number] 09/14/2022 12:56:28 09/14/2022 13:10:08 Trigger finger of right hand [id number] M65.321 Right Index Trigger Finger - CSI: 09/14/22; 08/01/22 [id number] LAURA CIFUENTES PA-C [facility] [address] [place] [address] 09/19/2022 09:01:21 09/19/2022 09:19:40 Trigger finger of right hand [id number] [id number] M65.321 Right Index Trigger Finger - CSI: 09/14/22; 08/01/22 Health Concerns Section Related Observation LastModified by Organization Detai ls LastModified Time None Recorded Concern Status LastModified by Organization Details LastModified Time None Recorded Advance Directives Directive None Recorded Payers Encounter Date Sequence Insurance Name Policy Number Policy Thornton Covered Member ID Thornton Member ID Guarantor Name 08/01/2022 [facility] Alexandr Josie n Ramin 08/17/2022 [facility] [employer] Josie raul Faustin 09/14/2022 [facility] [employer] Josie n Ramin 09/19/2022 [facility] Josie n Ramin Notes Date Note Type Note Provider Name and Address Organization Details Recorded Time 08/01/2022 text/html Sophia is a 27 y o RHD F [employer] employee who presents today for evaluation of workers comp right index trigger finger. She reports persistent triggering over the past month despite modified work duty and OT. She initially reported numbness/tingling in the hand as well but states those symptoms have resolved with nighttime bracing. Consult requested by:[facility] Physician: Kerrie jackson Hand dominance: {{Right* Left ambi dextrous}}Location : {{Right* Left Bila teral}} {{Hand* Wrist Elbo w Other}}wrist/IF Pain level: {{0 1 2 3 4* 5 6 7 8 9 10}} /10 Date of injury: 06/26/22 Recent Surgery: {{Yes No*}} In office procedure? {{Yes No*}} Previous upper extremity surgery? {{Yes No*}}Have you or an immediate family member ever seen our hand surgeons before? 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 {{Yes* No}} Is this injury associated with a Workers Compensation claim? {{Yes* No}} LAURA CIFUENTES PA-C [address] [place], [address], [facility] 08/01/2022 14:18:20 08/17/2022 text/html Patient returns today for recheck. She is pleased with significant improvement in pain after injection but continues to have intermittent triggering symptoms. Consult requested by:[facility] Physician: Kerrie luther Hand dominance: {{Right* Left ambi dextrous}}Location : {{Right* Left Bila teral}} {{Hand Wrist Elbow Other IF#}} Pain level: {{0 1* 2 3 4 5 6 7 8 9 10}} /10 Date of injury: 06/26/22 Recent Surgery: {{Yes No*}} In office procedure? {{Yes* No}}rt IF trigger finger csi: 3Previous upper extremity surgery? {{Yes No*}}Have you or an immediate family member ever seen our hand surgeons before? 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 {{Yes* No}} Is this injury associated with a Workers Compensation claim? {{Yes* No}} LAURA CIFUENTES PA-C [address] [place], [address], [facility] 08/18/2022 14:56:11 09/14/2022 text/html Patient returns today for recheck of worker's comp right index trigger finger. She reports improvement in symptoms with injection but does continue to have intermittent symptoms at this time despite ongoing work restrictions. Consult requested by:[facility] Physician: Kerrie luther Hand dominance: {{Right* Left ambi dextrous}}Location : {{Right* Left Bila teral}} {{Hand Wrist Elbow Other IF#}} Pain level: {{0 1 2* 3 4 5 6 7 8 9 10}} /10 Date of injury: 06/26/22 Recent Surgery: {{Yes No*}} In office procedure? {{Yes* No}}rt IF trigger finger csi: 08/01/2022revious upper extremity surgery? {{Yes No*}}Have you or an immediate family member ever seen our hand surgeons before? 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 {{Yes* No}} Is this injury associated with a Workers Compensation claim? {{Yes* No}} LAURA CIFUENTES PA-C [address] [place], [address], [facility] 09/21/2022 14:50:38 09/19/2022 text/html Patient returns today for recheck. She is pleased with resolution of triggering symptoms after injection at last visit and states she is ready to resume full duty work at this time. Consult requested by:[facility] Physician: Kerrie jackson Hand dominance: {{Right* Left ambi dextrous}}Location : {{Right* Left Bila teral}} {{Hand Wrist Elbow Other IF#}} Pain level: {{0* 1 2 3 4 5 6 7 8 9 10}} 10 Date of injury: 06/26/22 Recent Surgery: {{Yes No*}} In office procedure? {{Yes* No}}rt IF trigger finger csi: 08/01/2022revious upper extremity surgery? {{Yes No*}}Have you or an immediate family member ever seen our hand surgeons before? 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 {{Yes* No}} Is this injury associated with a Workers Compensation claim? {{Yes* No}} LAURA CIFUENTES PA-C [address] [place], [address], [facility] 09/26/2022 10:54:30 OBGyn Episode No OBEpisode recorded.
[2024-06-17] MEDS: ONDANSETRON 4MG ODT 8 MG SL (00:04)
--- NOTE | 2024-06-17 00:45 | HMH.EDGENADL ---
Discharge Plan Disposition Patient Disposition: Home, Self-Care Condition: Good Prescriptions Prescriptions: New ondansetron 4 mg tablet,disintegrating 4 mg PO Q6H PRN (Reason: nausea and vomiting) Qty: 10 0RF promethazine 12.5 mg tablet 12.5 mg PO TID PRN (Reason: allergy symptoms) Qty: 7 0RF Rx Instructions: 3 doses during day; last dose no later than 4 hr before bedtime No Action ibuprofen [IBU] 800 mg tablet 800 mg PO Q8HP PRN (Reason: Moderate Pain) Qty: 30 0RF Referrals Follow up/Referrals: Maribell Randhawa APRN [Primary Care Provider] - See instructions Activity Restrictions/Add. Instructions Additional Instructions/Restrictions: You were evaluated in the ER and are appropriate for discharge at this time. Take the prescribed ondansetron (Zofran) if needed for nausea and vomiting. If this medication does not control your symptoms, then take the promethazine (Phenergan). Do not take these medications together. Do not drive or operate machinery after taking Phenergan as it may make you sleepy and cloud your judgment. Drink plenty of fluids including water, Gatorade, Pedialyte. Make an appointment with your primary care doctor for reevaluation in 2 to 3 days. Return to the ER with new, worsening, or otherwise concerning symptoms. Clinical Impressions Clinical Impression: Nausea & vomiting Stand Alone Forms Stand Alone Forms: Work/School Release Instructions Patient Instructions: DI for Diarrhea and Traveler's Diarrhea -- Adult, DI for Nausea -- Adult Print Language Print Language: Malay Discharge ED Provider: Gunner Loo Adult HPI General Chief complaint: Nausea/Vomiting/Diarrhea Stated complaint: vomiting Time Seen by Provider: 06/16/24 23:52 Mode of Arrival: Ambulatory Source of Information: Patient Description of Symptoms (Recalled from ER Triage Doc. by RN): pt reports nausea and vomitting that began at 0800 this morning. pt reports that she is unable to keep any fluids down at this time. no medications prior to arrival History of Present Illness HPI narrative: 29-year-old female not currently on any daily medications presents to the ER with concerns of nausea, vomiting, few episodes of diarrhea that began this morning around 8 AM approximately 16 hours prior to arrival. Patient reports she is not able to tolerate anything by mouth including fluids. She does not have headache, dizziness, numbness, tingling, weakness, she describes generalized abdominal discomfort but no localizing pain. No chest pain or difficulty breathing. No other associated symptoms. No medications prior to arrival. Patient reports no chance of being citing having a tubal ligation. Related Data Previous Rx's ?Medication ?Instructions ?Recorded ibuprofen 800 mg tablet (IBU) 800 mg PO Q8HP PRN Moderate Pain 06/20/22 #30 tabs ondansetron 4 mg disintegrating 4 mg PO Q6H PRN nausea and 06/17/24 tablet vomiting #10 tabs promethazine 12.5 mg tablet 12.5 mg PO TID PRN allergy 06/17/24 symptoms #7 tabs Allergies Allergy/AdvReac Type Severity Reaction Status Date / Time penicillin G (PENICILLIN G) Allergy Intermediate SWELLING Verified 04/29/24 14:47 erythromycin base Allergy Mild I-HIVES Verified 04/29/24 14:47 (ERYTHROMYCIN BASE) ARTIFICIAL STRAWBERRY Allergy Mild I-RASH Uncoded 07/23/20 10:05 FLAVORING [facility] Disclaimer: The information contained in this section may have been updated after the patient was seen, as this information can be updated by other users. Medical History No significant past medical history Social History Smoking Status: Current every day smoker tobacco type: cigarettes packs per day: 1 second hand exposure: No alcohol intake: never substance use type: denies use current occupational status: employed Travel in the last 8 weeks?: None household members: family and children housing: house Have you lived/traveled outside [place] in past 30 days?: No Contact w/someone who lives/traveled outside US past 30 days?: No Exposure to someone with infectious disease in past 14 days?: No Do you have a fever (greater than 100.4 F or 38 C)?: No Have you tested positive for COVID-19?: No Exposed to someone with COVID-19 in past 14 days?: No Do you have a sore throat?: No Do you have a cough?: No Do you have any weakness?: No Do you have any diarrhea?: No Are you experiencing any unusual bleeding?: No Do you have any muscle aches/pain?: No Do you have any abdominal pain?: No Are you experiencing loss of taste or smell?: No Other Medical History Have you received the Flu Vaccine for this season: No Have you received the Pneumonia Vaccine: No ROS Obtained: Yes Systems reviewed as appropriate & no additional complaints except as documented Per HPI Physical Exam General General appearance: alert and in no apparent distress Head Head exam: atraumatic and normocephalic Eye Eye exam: Present PERRL and EOMI ENT ENT exam: Present mucous membranes moist Neck Neck exam: Present normal inspection and full ROM Chest Chest inspection: Present symmetric chest wall rise Respiratory Respiratory exam: Present normal lung sounds bilaterally; Absent respiratory distress, wheezes or stridor Cardiovascular Cardiovascular exam: Present regular rate and normal rhythm Abdominal Exam Abdominal exam: Present soft; Absent distention, tenderness (Mild generalized discomfort but no tenderness), guarding or rebound Extremities Exam Extremities exam: Present full ROM Back Exam Back exam: Absent CVA tenderness (R) or CVA tenderness (L) Neurological Exam Neurological exam: Present alert and oriented X3; Absent motor sensory deficit Psychiatric Psychiatric exam: Present normal affect and normal mood Skin Skin exam: Present warm and dry Medical Decision Making Medical Records Medical records reviewed: Yes I reviewed the patient's medical records. Screening: Per USPSTF and CDC recommendations, given the prevalence of disease in our region, it is our hospital?s policy to screen for HIV and viral Hepatitis for all patients aged 18 and over and those with ongoing risk factors. MR Comment: Patient tested positive for COVID in March 2024 [facility] Inquiry Pt receiving controlled substance: No Vital Signs: 06/16/24 23:50 Temperature 98.4 F Temperature Source Oral Pulse Rate [Right] 100 H Respiratory Rate 22 Blood Pressure [Right Arm] 134/81 Blood Pressure Mean [Right Arm] 98 02 Sat by Pulse Oximetry 100 Oxygen Delivery Method Room Air Orders (Tests/Meds): ED MEDICATIONS Discontinued Medications Generic Name Dose Route Start Last Admin Trade Name Freq PRN Reason Stop Dose Admin Ondansetron HCl 8 mg 06/16/24 23:54 06/17/24 00:04 Ondansetron 4mg Odt SL 06/16/24 23:55 8 mg ONCE ONE Administration Medical Decision Narrative: In summary, this 29-year-old female presents to the emergency department today with nausea, vomiting which are nonbloody and nonbilious, few episodes of nonbloody nonmelanotic diarrhea. On initial evaluation patient is hemodynamically stable, afebrile, benign abdominal exam, appears well-hydrated clinically, remaining exam benign. Differential diagnosis includes but is not limited to viral syndrome, considered electrolyte abnormality or dehydration, patient was borderline tachycardic on arrival but is not tachycardic during my exam. She appears well-hydrated clinically with brisk capillary refill and moist mucous membranes, good skin turgor, I had considered the possibility of dangerous intra-abdominal pathology but patient has a very reassuring abdominal exam with no localizing tenderness, no rebound or guarding. With patient and her daughter having identical symptoms I have highest suspicion for viral syndrome. I do not believe labs or imaging are indicated at this time. I am starting with antiemetics. Patient received oral Zofran. On reassessment her nausea is improved and she is tolerating oral intake of fluids at this time. No emesis. She states she tolerates both Zofran and Phenergan. Both of these medications were prescribed to her and she was instructed not to take them together. She was also given cautionary instructions about the use of Phenergan due to its side effects. She is appropriate for discharge at this time and comfortable with this plan. Patient was given instructions on symptomatic monitoring and management, follow up instructions, and return precautions for the emergency department. Patient indicated understanding and was discharged in stable condition. Critical Care Critical Care Time Critical Care Time: No
[2024-06-17 00:48] VITALS: BP 134/87; PULSE 92; RESP 18; TEMP 36.9; O2SAT 100
== END 2024-06-17 00:52 | disposition home or self-care (01) ==
PROVIDERS: Emergency Provider Emergency Medicine; PCP Nurse Practitioner Family
DX: R11.2 Nausea with vomiting, unspecified (principal)
CPT/HCPCS: 99283; Q0162

== ENCOUNTER 2024-08-11 01:07 | Emergency (ER) | payer MEDICAID, SELFPAY ==
--- NOTE | 2024-08-11 01:11 | HMH.EDGENADL ---
Discharge Plan Disposition Patient Disposition: Home, Self-Care Prescriptions Prescriptions: No Action ondansetron 4 mg tablet,disintegrating 4 mg PO Q6H PRN (Reason: nausea and vomiting) Qty: 10 0RF promethazine 12.5 mg tablet 12.5 mg PO TID PRN (Reason: allergy symptoms) Qty: 7 0RF Rx Instructions: 3 doses during day; last dose no later than 4 hr before bedtime ibuprofen [IBU] 800 mg tablet 800 mg PO Q8HP PRN (Reason: Moderate Pain) Qty: 30 0RF Referrals Follow up/Referrals: Ferny Abernathy DO [Staff Physician, Orthopedics] - See instructions Maribell Randhawa APRN [Primary Care Provider, Medical] - See instructions Activity Restrictions/Add. Instructions Additional Instructions/Restrictions: Please follow-up with your primary care provider. Please return to the emergency department if you develop any new or worsening symptoms or become concerned for your health. Consider following up with Dr. Abernathy's office if your symptoms persist. Clinical Impressions Clinical Impression: Pins and needles sensation Print Language Print Language: Serbian Discharge ED Provider: See Perez General Adult HPI General Chief complaint: Extremity Injury, Upper Stated complaint: AO 08/11/24 0000 Left arm injury Time Seen by Provider: 08/11/24 01:11 History of Present Illness HPI narrative: 29-year-old female without significant past medical history presents for injury to the left upper extremity. She reports that he was walking her dog when it started to run off and it yanked her left arm. She did not fall or hit her arm or injured in any other way. She reports that after it was getting she started having bkoy-[id number]-[id number] sensation, primarily in the left shoulder and elbow. Related Data Previous Rx's ?Medication ?Instructions ?Recorded ibuprofen 800 mg tablet (IBU) 800 mg PO Q8HP PRN Moderate Pain 06/20/22 #30 tabs ondansetron 4 mg disintegrating 4 mg PO Q6H PRN nausea and 06/17/24 tablet vomiting #10 tabs promethazine 12.5 mg tablet 12.5 mg PO TID PRN allergy 06/17/24 symptoms #7 tabs Allergies Allergy/AdvReac Type Severity Reaction Status Date / Time penicillin G (PENICILLIN G) Allergy Intermediate SWELLING Verified 04/29/24 14:47 erythromycin base Allergy Mild I-HIVES Verified 04/29/24 14:47 (ERYTHROMYCIN BASE) ARTIFICIAL STRAWBERRY Allergy Mild I-RASH Uncoded 07/23/20 10:05 FLAVORING PFSH [facility] Disclaimer: The information contained in this section may have been updated after the patient was seen, as this information can be updated by other users. Medical History No significant past medical history Social History Smoking Status: Current every day smoker tobacco type: cigarettes packs per day: 1 second hand exposure: No alcohol intake: never substance use type: denies use current occupational status: employed Travel in the last 8 weeks?: None household members: family and children housing: house Have you lived/traveled outside US in past 30 days?: No Contact w/someone who lives/traveled outside US past 30 days?: No Exposure to someone with infectious disease in past 14 days?: No Do you have a fever (greater than 100.4 F or 38 C)?: No Have you tested positive for COVID-19?: No Exposed to someone with COVID-19 in past 14 days?: No Do you have a sore throat?: No Do you have a cough?: No Do you have any weakness?: No Do you have any diarrhea?: No Are you experiencing any unusual bleeding?: No Do you have any muscle aches/pain?: No Do you have any abdominal pain?: No Are you experiencing loss of taste or smell?: No Other Medical History Have you received the Flu Vaccine for this season: No Have you received the Pneumonia Vaccine: No ROS Obtained: Yes All systems reviewed & no additional complaints except as documented Physical Exam General General appearance: alert and in no apparent distress Head Head exam: atraumatic and normocephalic Eye Eye exam: Present normal appearance, PERRL and EOMI ENT ENT exam: Present normal oropharynx and normal external ear exam Neck Neck exam: Present normal inspection and full ROM Chest Chest inspection: Present normal inspection and symmetric chest wall rise; Absent tenderness Respiratory Respiratory exam: Present normal lung sounds bilaterally; Absent respiratory distress Cardiovascular Cardiovascular exam: Present regular rate and normal rhythm Abdominal Exam Abdominal exam: Present soft; Absent distention, tenderness or guarding Extremities Exam Extremities exam: Present normal inspection, full ROM and tenderness (Mild tenderness to the left shoulder and elbow. Normal distal pulses, normal distal sensation and range of motion); Absent edema or joint swelling Back Exam Back exam: Present normal inspection; Absent tenderness Neurological Exam Neurological exam: Present alert and oriented X3; Absent motor sensory deficit Psychiatric Psychiatric exam: Present normal affect and normal mood Skin Skin exam: Present warm, dry and normal color Lymphatic Lymphatic Findings: no adenopathy Medical Decision Making Medical Records Medical records reviewed: Yes I reviewed the patient's medical records. Screening: Per USPSTF and CDC recommendations, given the prevalence of disease in our region, it is our hospital?s policy to screen for HIV and viral Hepatitis for all patients aged 18 and over and those with ongoing risk factors. Graham Inquiry Pt receiving controlled substance: No Graham was queried for this patient: No Vital Signs: 08/11/24 01:22 08/11/24 01:57 08/11/24 02:18 Temperature 98.5 F 98.6 F Temperature Source Oral Oral Pulse Rate 79 80 Pulse Rate [Right] 82 Respiratory Rate 18 18 Blood Pressure 126/91 H 114/66 Blood Pressure [Right Arm] 153/89 H Blood Pressure Mean [Right Arm] 110 02 Sat by Pulse Oximetry 100 96 Oxygen Delivery Method Room Air Room Air Room Air Lab Data Lab results reviewed: Yes I reviewed the patient's lab results. Orders (Tests/Meds): ORDERS Category Date Time Status Elbow XR left mininum 3 views [XR elbow LT min 3V] Stat Exams 08/11/24 01:17 Completed Shoulder XR left minimum 2 views [XR shoulder LT min 2V Exams 08/11/24 01:17 Completed ] Stat Medical Decision Narrative: 29-year-old female without significant past medical history presents for left arm numbness and tingling after traction injury while walking her dog.. History was obtained via interactive discussion with patient. On arrival, patient is [afebrile, hemodynamically stable, satting appropriately, alert, oriented x4, GCS 15], moving all extremities spontaneously. Full physical exam performed and significant for some tenderness of the left shoulder and elbow, normal neurovascular exam Differential includes but is not limited to fracture, dislocation, subluxation, transient neuropraxia. Workup initiated including radiographs of the left shoulder and elbow. On re-evaluation, patient [remains afebrile, HD stable.] Imaging independently interpreted by me and significant for no evidence of acute fracture or dislocation. See radiology read for full review of final results. Given patient history, exam and workup, patient's presentation most likely represents transient neuropraxia related to traction injury. Recommend she follow-up with PCP/Ortho symptoms worsen or do not improve. Return precautions given. Procedures Risk/Benefits of Procedure(s) Were Explained: Yes Critical Care Critical Care Time Critical Care Time: No
--- NOTE | 2024-08-11 01:17 | XR_ITS ---
PROCEDURE INFORMATION: Exam: XR Left Elbow Exam date and time: 08/11/2024 1:58 AM Age: 29 years old Clinical indication: Pain; Elbow; Left; Additional info: Elbow pain, pulled by dog on leash TECHNIQUE: Imaging protocol: Radiologic exam of the left elbow. Views: 3 or more views. COMPARISON: CR XR SHOULDER LT MIN 2V 08/11/2024 1:58 AM FINDINGS: Bones/joints: The elbow is normally aligned. No acute fracture or joint effusion. No significant degenerative changes. Soft tissues: Normal. IMPRESSION: No acute findings.
--- NOTE | 2024-08-11 01:17 | XR_ITS ---
PROCEDURE INFORMATION: Exam: XR Left Shoulder Exam date and time: 08/11/2024 1:58 AM Age: 29 years old Clinical indication: Pain; Shoulder; Left; Additional info: Shoulder pain, pulled by dog on leash TECHNIQUE: Imaging protocol: Radiologic exam of the left shoulder. Views: 2 or more views. COMPARISON: CR XR ELBOW LT MIN 3V 08/11/2024 1:58 AM FINDINGS: Bones/joints: The shoulder is normally aligned. No acute fracture. No significant degenerative changes. Soft tissues: Normal. IMPRESSION: No acute findings.
[2024-08-11 01:22] VITALS: BP 153/89; PULSE 82; RESP 18; TEMP 36.9; O2SAT 100; BMI 30.7
--- OUTSIDE RECORDS SUMMARY | 2024-08-11 01:27 | XMS_ITS | Clinical Summary ---
Author Organization [facility] Address [address] [place] [id number] Phone [email or web address] Care Team Providers Care Outboard Motor Tester Name Role Phone RochelleChong myles Primary Care Provider [phone] Allergies Active Allergy Reactions Criticality Noted Date Comments Erythromycin Hives Medium 10/31/2019 Penicillins Hives Medium 10/31/2019 Medications Etonogestrel (Nexplanon) 68 MG implant Inject under the skin. Active Active Problems Problem Noted Date Diagnosed Date Irritation of left eye 06/28/2022 Encounter for fitness for duty examination 01/10 28 weeks gestation of 01/10/2021 Immunizations Immunization Administration Dates Next Due Covid-19 (Moderna Glenn, 12yrs+) (CVX-[id number]) 2020,03/22/2020 Social History Tobacco Use Types Packs/Day Years Used Date Smoking Tobacco: Every Day Cigarettes Smokeless Tobacco: Never Tobacco Cessation:Ready to Q uit: Not Asked; Counseling Given: Not Answered Intimate Partner Violence Answer Date R ecorded Insults You Not on file 06/05/2020 Threatens You Not on file 06/05/2020 Screams at You Not on file 06/05/2020 Physically Hurt Not on file 06/05/2020 Intimate Partner Violence Score Not on file 06/05/2020 Depression Answer Date Recorded PHQ Total Score 0 11/29/2021 Stress Answer Date Recorded Stress in your Life 0 03/30/2020 Dealing with Stress Not on file 03/30/2020 Comments No Sex and Gender Information Value Date Recorded Sex Assigned at Not on file Legal Sex Female 6:31 PM CDT Gender Identity Not on file Sexual Orientation Not on file Last Filed Vital Signs Vital Sign Reading Time Taken Comments Blood Pressure 118/79 09/19/2022 9:38 PM EDT Pulse 90 09/19/2022 9:38 PM EDT Temperature 36.9 C (98.4 F) 08/01/2022 4:58 PM EDT Respiratory Rate 17 09/19/2022 9:38 PM EDT Oxygen Saturation 96% 09/19/2022 9:38 PM EDT Inhaled Oxygen Concentration - - Weight 78 kg (172 lb) 01/06/2022 6:54 PM EST Height 160 cm (5' 3 ) 01/06/2022 6:54 PM EST Body Mass Index 30.47 01/06/2022 6:54 PM EST Plan of Treatment Health Maintenance Due Date Last Done Comments Dental Cleaning/Exam 1995 Cervical Cancer Screening 2011 Hepatitis B Immunization (1 of 3 - 19+ 3-dose series) 2014 Covid-19 Immunization ( season) 2023 04/05/2020, 03/22/2020, 03/05/2020 Influenza Immunization (Season Ended) 2024 11/17/2009 Tetanus Diphtheria and Pertussis Immunization (3 - Td or Tdap) 01/10/2031 01/10/2021, 11/05/2007 HIB Immunization Aged Out No longer e ligible based on patient's age to complete this topic HPV Immunization Aged Out No longer e ligible based on patient's age to complete this topic Hepatitis A Immunization Aged Out No longer eligible based on patient's age to complete this topic Pneumococcal: Ped (0 to 5 Yrs) and At-Risk Member (6 to 64 Yrs) Aged Out No longer eligible b ased on patient's age to complete this topic Polio Immunization Aged Out No longer eligible based on patient's age to complete this topic Varicella Immunization Aged Out No lo nger eligible based on patient's age to complete this topic Insurance OPT OUT NO COPAY NB Care Teams Outboard Motor Tester Relationship Specialty Start Date End Date Chong Byrd [address] [place] [id number] PCP - General Safety Clothing And Equipment Developer 12/08/20
--- OUTSIDE RECORDS SUMMARY | 2024-08-11 01:28 | XMS_ITS | Data Portability ---
Author Organization [facility] Address [address] [address] [place] [address] Care Team Providers Care Child Care Attendant Name Role Phone LUTHER CLARK Ferris Wheel Attendant Assessment Encounter Date Assessment Date Assessment LastModified [...] Finger Ortho completed LAURA CIFUENTES PA-C [address] [place], [address], [facility] 09/21/2022 14:50:05 3 Injection Trigger Finger Ortho completed LAURA CIFUENTES PA-C [address] [place], [address], [facility] 08/01/2022 14:18:02 Imaging Results None recorded. Procedure Notes None recorded. Medical Equipment None Reported. Allergies No known drug allergies Medications Not known to be on any medication Vitals Date Recorded Body height Body mass index (BMI) Body weight Provider Name and Address Organization Details Last Updated DateTime 08/01/2022 162.56 cm 30 kg/m2 11963.66 g Abdiel Alex [facility] 08/01/2022 13:13:33 Date Recorded Body height Body mass index (BMI) Body weight Provider Name and Address Organization Details Last Updated DateTime 08/17/2022 162.56 cm 30 kg/m2 02911.66 g Darcy Greco [facility] 08/17/2022 13:45:20 Date Recorded Body height Body mass index (BMI) Body weight Provider Name and Address Organization Details Last Updated DateTime 09/14/2022 162.56 cm 30 kg/m2 62834.66 g Abdiel Johnson [facility] 09/14/2022 13:00:53 Date Recorded Body height Body mass index (BMI) Body weight Provider Name and Address Organization Details Last Updated DateTime 09/19/2022 162.56 cm 30 kg/m2 46844.66 g Abdiel Johnson [facility] 09/19/2022 09:04:40 Social History None recorded. Functional Status None recorded. Mental Status None recorded. Family History Nothing Reported. Medical History No medical history recorded. Gynecological HistoryNo gynecological history recorded. Obstetrics History GPAL:G 0 P 0 0 0 0 Past Encounters Encounter ID Performer Location Encounter Start Date Encounter Closed Date Diagnosis/Indication Diagnosis SNOMED-CT Code Diagnosis ICD10 Code Diagnosis Note [id number] LAURA CIFUENTES PA-C [facility] [address] [place] [id number] 08/01/2022 13:00:11 08/01/2022 13:30:08 Trigger finger of right hand [id number] M65.321 Right Index Trigger Finger - CSI: 08/01/22 [id number] LAURA CIFUENTES PA-C [facility] [address] [place] [id number] 08/17/2022 13:34:18 08/17/2022 13:55:01 Trigger finger of right hand [id number] M65.321 Right Index Trigger Finger - CSI: 08/01/22 [id number] LAURA CIFUENTES PA-C [facility] [address] [place] [id number] 09/14/2022 12:56:28 09/14/2022 13:10:08 Trigger finger of right hand [id number] M65.321 Right Index Trigger Finger - CSI: 09/14/22; 08/01/22 [id number] LAURA CIFUENTES PA-C [facility] [address] [place] [id number] 09/19/2022 09:01:21 09/19/2022 09:19:40 Trigger finger of right hand [id number] M65.321 Right Index Trigger Finger - CSI: 09/14/22; 08/01/22 Health Concerns Section Related Observation LastModified by Organization Detai ls LastModified Time None Recorded Concern Status LastModified by Organization Details LastModified Time None Recorded Advance Directives Directive None Recorded Payers Insurance Date Sequence Insurance Name Policy Number Policy Thornton Covered Member ID Thornton Member ID Guarantor Name 07/28/2022 [facility] Notes Date Note Type Note Provider Name and Address Organization Details Recorded Time 08/01/2022 text/html Sophia is a 27 y o RHD F [employer] employee who presents today for evaluation of workers comp right index trigger finger. She reports persistent triggering over the past month despite modified work duty and OT. She initially reported numbness/tingling in the hand as well but states those symptoms have resolved with nighttime bracing. Consult requested by:[facility] Physician: Kerrie luther Hand dominance: RightLocation: Right Handwrist/IF Pain level: 10 Date of injury: 06/26/22 Recent Surgery: No In office procedure? No Previous upper extremity surgery? NoHave you or an immediate family member ever seen our hand surgeons before? No Currently employed?: Full timeEmployer:[employer] AOccupation: BODY WELD Are they currently working? Yes Is this injury associated with a Workers Compensation claim? Yes LAURA CIFUENTES PA-C [address] [place], [address], [facility] 08/01/2022 14:18:20 08/17/2022 text/html Patient returns today for recheck. She is pleased with significant improvement in pain after injection but continues to have intermittent triggering symptoms. Consult requested by:[facility] Physician: Kerrie luther Hand dominance: RightLocation: Right IF Pain level: Date of injury: 06/26/22 Recent Surgery: No In office procedure? Yesrt IF trigger finger csi: 08/01/2022revious upper extremity surgery? NoHave you or an immediate family member ever seen our hand surgeons before? 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 Yes Is this injury associated with a Workers Compensation claim? Yes LAURA CIFUENTES PA-C [address] [place], [address], [facility] 08/18/2022 14:56:11 09/14/2022 text/html Patient returns today for recheck of worker's comp right index trigger finger. She reports improvement in symptoms with injection but does continue to have intermittent symptoms at this time despite ongoing work restrictions. Consult requested by:[facility] Physician: Kerrie jackson Hand dominance: RightLocation: Right IF Pain level: 2 /10 Date of injury: 06/26/22 Recent Surgery: No In office procedure? Yesrt IF trigger finger csi: 08/01/2022revious upper extremity surgery? NoHave you or an immediate family member ever seen our hand surgeons before? 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 Yes Is this injury associated with a Workers Compensation claim? Yes LAURA CIFUENTES PA-C [address] [place], [address], [facility] 09/21/2022 14:50:38 09/19/2022 text/html Patient returns today for recheck. She is pleased with resolution of triggering symptoms after injection at last visit and states she is ready to resume full duty work at this time. Consult requested by:[facility] Physician: Kerrie jackson Hand dominance: RightLocation: Right IF Pain level: 0 /10 Date of injury: 06/26/22 Recent Surgery: No In office procedure? Yesrt IF trigger finger csi: 08/01/2022revious upper extremity surgery? NoHave you or an immediate family member ever seen our hand surgeons before? 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 Yes Is this injury associated with a Workers Compensation claim? Yes LAURA CIFUENTES PA-C [address] [place], [address], [facility] 09/26/2022 10:54:30 OBGyn Episode No OBEpisode recorded.
[2024-08-11 01:57] VITALS: BP 126/91; PULSE 79; O2SAT 96
[2024-08-11 02:18] VITALS: BP 114/66; PULSE 80; RESP 18; TEMP 37; O2SAT 98
== END 2024-08-11 02:21 | disposition home or self-care (01) ==
PROVIDERS: Emergency Provider Emergency Medicine; PCP Nurse Practitioner Family
DX: R20.2 Paresthesia of skin (principal)
CPT/HCPCS: 73030; 73080; 99283

== ENCOUNTER 2024-11-23 12:18 | Outpatient (CLI) | payer MEDICAID, SELFPAY ==
[2024-11-23 21:50] LABS: Coronavirus 19, PCR Not Detected (NotDetected); Influenza A, PCR Not Detected (NotDetected); Influenza B, PCR Not Detected (NotDetected)
--- OUTSIDE RECORDS SUMMARY | 2024-11-24 12:20 | XMS_ITS | Clinical Summary ---
Author Organization [facility] Address [address] [place] [address] Care Team Providers Care Receiving Weigher Name Role Phone Provider, Carlee Kaur Primary Care Provid er Unavailable Allergies Active Allergy Reactions Criticality Noted Date Comments Erythromycin Unknown - Patient st ates they do not know rxn details,Hives Medium 10/17/2018 Penicillins Unknown - Patient st ates they do not know rxn details,Hives,Swelling High 10/17/2018 Medications ondansetron (Zofran) 4 MG tablet Take 1 tablet (4 mg) by mouth every 8 (eight) hours if needed for nausea or vomiting. 20 tablet 3 4 Active hydrOXYzine HCl (Atarax) 25 MG tabletIndicatio ns:Anxiety and depression Take 1 tablet by mouth every 6 hours as needed for itching. 60 tablet 11 5 Active norgestimate-et hinyl estradiol (Sprintec 28) 0.25-35 MG-MCG tabletIndicatio ns:Menorrhagia with regular cycle Take 1 tablet by mouth daily. 84 tablet 4 5 Active sertraline (Zoloft) 50 MG tabletIndicatio ns:Anxiety and depression Take 1 tablet by mouth daily. 14 tablet 5 Active FLUoxetine (PROzac) 10 MG capsuleIndicati ons:Anxiety and depression Take 1 capsule by mouth daily. 30 capsule 11 5 11/08/19 25 Discontinu ed(Side effects) Active Problems Problem Noted Date Diagnosed Date contractions 11/06/2023 Assessment & Plan (11/06/2023 10:12 AM EDT): Inpt at [facility] 11/01- for contractions & pressure. S/p IVF, terbutaline. Started on Procardia XL 30 BID. Since then, improved frequency & intensity, but still present. Pressure constant, worse with walking. Hydrating well - 5 Kirit tumblers - but new diarrhea overnight, likely viral enteritis. Enc increased hydration, electrolytes. Given extensive precautions to return - decreased movement, increased contractions, VB, leaking fluid, severe abd pain. Pt expressed understanding. 36 weeks gestation of 11/06/2023 Assessment & Plan (11/06/2023 10:08 AM EDT): O+/rubella immune. Other labs negative. Dated by LMP c/w 7w US. Anatomy US 07/23 normal. Growth US 10/17: normal fluid, EFW 55% (2095g), AC 91% Immunizations: s/p Tdap 09/17. Flu shot last season. Need to discuss this season! Delivery planning: repeat LTCS - currently scheduled for 39w PP Contraception: BTL with CS - KMA signed 09/30 GBS next week - 36 weeks Gestational diabetes mellitu s (GDM) in third trimester controlled on oral hypoglycemic drug 10/30/2023 Assessment & Plan (11/06/2023 10:13 AM EDT): Failed 1h GTT & 3h GTT Started glyburide 5mg HS for overall elevated BG. Increased to 10mg on 10/29. Fastings 110s-120s, except today was 68. Lows overnight in 60s but not usually symptomatic. Discussed protein-heavy dinner. Daytime glucose improved to 120s-130s. Still not at goal. Continue balanced diet. Growth US 10/17: normal fluid, EFW 2094 = 55%, accelerated AC 91% Next US scheduled 11/19 Continue NSTs 2x/wk + PNC Resolved Problems Problem Noted Date Diagnosed Date Resolved Date Previous section co mplicating 10/30/2023 11/09/2024 Assessment & Plan (11/06/2023 10:12 AM EDT): H/o LTCS x2 - plan repeat LTCS with BTL Encounters Date Type Department Care Team Description 11/07/2024 Orders Only Obstetrics & Gynecology [address] [place] [address] Ruthie Alarcon APRN, CNM Anxiety and depression (Primary Dx) 11/04/2024 Telephone Obstetrics & Gynecology [address] [place] [address] Rocio Kan RN 09/24/2024 9:00 AM EDT Office Visit Obstetrics & Gynecology [address] [place] [address] Ruthie Alarcon APRN, CNM Anxiety and depression (Primary Dx); Menorrhagia with regular cycle 09/24/2024 Travel from Last 3 Months Immunizations Immunization Administration Dates Next Due DTaP 11/05/2007 Influenza, injectable, quadr ivalent, preservative free, pediatric 11/15/2020 Influenza, seasonal, injectable 11/17/2009 Influenza, seasonal, injectable, preservative fr ee 11/02/2023 Moderna COVID-19 Vaccine ([place]ake Icer) 12+ years ,03/22/2020 Rsv, Bivalent, Protein Subun it Rsvpref, Diluent Reconstituted, 0.5mL, PF 11/14/2023 Tdap 09/18/2023,01/10/2021 Family History Medical History Relation Name Comments Hypertension Mother Relation Name Status Comments Mother Social History Tobacco Use Types Packs/Day Years Used Date Smoking Tobacco: Every Day Cigarettes 1 5 Smokeless Tobacco: Never Tobacco Cessation:Ready to Q uit: Not Asked; Counseling Given: Not Answered Alcohol Use Standard Drinks/Week Comments Not Currently 0 (1 standard drink = 0.6 oz pur e alcohol) PHQ-2 Answer Date Recorded Patient Health Questionnaire-2 Score 6 09/24/2024 [place] Depression Scale Answer Date Recorded [place] Depression Scale Total 14 11/30/2023 The thought of harming myself has occurred to me . Never 11/30/2023 PHQ-9 Answer Date Recorded Patient Health Questionnaire-9 Score 16 09/24/2024 Comments No Sex and Gender Information Value Date Recorded Sex Assigned at Not on file Legal Sex Female 7:26 PM EDT Gender Identity Not on file Sexual Orientation Not on file Last Filed Vital Signs Vital Sign Reading Time Taken Comments Blood Pressure 133/85 11/30/2023 12:01 PM EDT Pulse 60 09/24/2024 9:27 AM EDT Temperature 36.7 C (98.1 F) 09/24/2024 9:27 AM EDT Respiratory Rate 20 11/20/2023 12:52 PM EDT Oxygen Saturation 100% 09/24/2024 9:27 AM EDT Inhaled Oxygen Concentration - - Weight 74.8 kg (165 lb) 09/24/2024 9:27 AM EDT Height 162.6 cm (5' 4 ) 11/20/2023 12:52 PM EDT Body Mass Index 28.32 11/20/2023 12:52 PM EDT Plan of Treatment Health Maintenance Due Date Last Done Comments [facility]-/Child/Adol SDOH Screenings 1995 [facility]-Varicella Vaccines (1 of 2 - 13+ 2-dose series) 02/14/2008 [facility]- SDOH Screenings 2013 [facility]-Adult SDOH Screenings 2013 [facility]-Hepatitis B Vaccines (1 of 3 - 19+ 3-dose series) 2014 [facility]-Pneumococcal Vaccine: Pediatrics (0 to 5 Years) and At-Risk Patients (6 to 49 Years) (1 of 2 - PCV) 2014 [facility]-Pap Smear 02/14/2016 HPV Vaccines (1 - 3-dose SCDM series) 2022 CPE-TGLOB-05 Vaccine (4 - 2024- season) 2024 04/05/2020, 03/22/2020, 03/05/2020 [facility]-Influenza Vaccine (#1) 10/20/202411/01, 11/15/2020, 11/17/2009 [facility]-Depression Screening 09/24/2025 025, 09/24/2024, 11/30/2023 [facility]-DTaP,Tdap,and Td Vaccines (4 - Td or Tdap) 09/17/2033 09/18/2023, 01/10/2021, 11/05/2007 [facility]-Zoster Vaccines (1 of 2) 2045 [facility]-HIV Screening Completed 04/27/2023, 08/13/2020 [facility]-Hepatitis C Screening Completed 04/27/2023, [facility]-RSV Vaccine: 60+ Years or Discontinued 11/14/2023 [facility]-Obesity Intervention Completed 025, 11/30/2023, 11/20/2023, Additional history exists [facility]-HIB Vaccines Aged Out No longer e ligible based on patient's age to complete this topic [facility]-Hepatitis A Vaccines Aged Out No longer eligible based on patient's age to complete this topic [facility]-IPV Vaccines Aged Out No longer e ligible based on patient's age to complete this topic [facility]-Rotavirus Vaccines Aged Out No lo nger eligible based on patient's age to complete this topic Goals Goal Patient Goal Type Associated Problems Recent Progress Patient-Stated? Author Delayed Delivery Care Plan CPM S22 PP LABOR (OBSTETRICS) No Open Scheduling, Background Procedures Procedure Name Priority Date/Time Associated Diagnosis Comments HEPATITIS C ANTIBODY W/REFLEX TO HCV QUANT PCR Routine 04/27/2023 2:42 PM EST Unsure of LMP (last menstrual period) as reason for ultrasound scan HIV 1/2 ANTIBODY/ANTIGEN SCREEN WITH REFLEX TO HIV I/II DIFFERENTIATION Routine 04/27/2023 2:42 PM EST Unsure of LMP (last menstrual period) as reason for ultrasound scan from Last 3 Months or Most Recently Relevant to Health Maintenance Results * HIV 1 & 2 Antibody/Antigen Screen (04/27/2023 2:42 PM EST) HIV 1 & 2 Antibody/Antigen Screen Non Reactive Non Reactive 04/27/2023 6:45 PM EST [facility] Comment:Screening for HIV 1 & 2 antibodies, and P24 antigen is NONREACTIVE. No confirmatory testing is required. Blood Venous blood specimen / Unknown Venipuncture / Unknown 04/27/2023 2:42 PM EST 04/27/2023 5:59 PM EST us Ja Hood MD LAB BLOOD ORDERABLES Final Resu lt [facility] [address] [place] [address] * Hepatitis C Antibody (04/27/2023 2:42 PM EST) Hepatitis C Antibody Negative Negative 04/27/2023 6:44 PM EST [facility] Blood Venous blood specimen / Unknown Venipuncture / Unknown 04/27/2023 2:42 PM EST 04/27/2023 5:58 PM EST us Ja Hood MD LAB BLOOD ORDERABLES Final Resu lt [facility] [address] [place] [address] from Last 3 Months or Most Recently Relevant to Health Maintenance Additional Health Concerns Active Problems Noted Date Diagnosed Date CPM S22 PP LABOR (OBSTETRICS) 05/05/2023 Insurance [employer] MEDICAID [facility] Care Teams Receiving Weigher Relationship Specialty Start Date End Date Provider, Carlee Kaur PCP - General 8/2/21
--- OUTSIDE RECORDS SUMMARY | 2024-11-24 12:20 | XMS_ITS | Encounter Summary ---
Author Organization Healthcare Address [address] [place] [address] Care Team Providers Care Senior Software Development Engineer Name Role Phone Provider, Carlee [place] Primary Care Provid er Unavailable Encounter Details Date Type Department Care Team (Late st Contact Info) Description 11/07/2024 Orders Only Obstetrics & Gynecology [address] [place] [address] Ruthie Alarcon, BUILDING PRINCIPAL, CN [address] [facility] [address] [place] [address] Anxiety and depression (Primary Dx) Social History Tobacco Use Types Packs/Day Years Used Date Smoking Tobacco: Every Day Cigarettes 1 5 Smokeless Tobacco: Never Alcohol Use Standard Drinks/Week Comments Not Currently 0 (1 standard drink = 0.6 oz pur e alcohol) PHQ-2 Answer Date Recorded Patient Health Questionnaire-2 Score 6 09/24/2024 [place] Depression Scale Answer Date Recorded [place] Depression Scale Total 14 11/30/2023 The thought of harming myself has occurred to me . Never 11/30/2023 PHQ-9 Answer Date Recorded Patient Health Questionnaire-9 Score 16 09/24/2024 Comments No Sex and Gender Information Value Date Recorded Sex Assigned at Not on file Legal Sex Female 7:26 PM EDT Gender Identity Not on file Sexual Orientation Not on file documented as of this encounter Plan of Treatment Not on file documented as of this encounter Goals Goal Patient Goal Type Associated Problems Recent Progress Patient-Stated? Author Delayed Delivery Care Plan CPM S22 PP LABOR (OBSTETRICS) No Open Scheduling, Background documented as of this encounter Visit Diagnoses Diagnosis Anxiety and depression- Primary documented in this encounter Additional Health Concerns Active Problems Noted Date Diagnosed Date CPM S22 PP LABOR (OBSTETRICS) 05/05/2023 Assessment Noted Time PHQ-9 Depression Total Score: 16 025 9:28 AM EDT A fall risk assessment has been complete d for the patient 09/24/2024 9:28 AM EDT A Body Mass Index follow-up plan has been documented for the patient 09/24/2024 10:24 AM EDT documented as of this encounter Care Teams Senior Software Development Engineer Relationship Specialty Start Date End Date Provider, Carlee Kaur PCP - General 09/20/20 documented as of this encounter
--- OUTSIDE RECORDS SUMMARY | 2024-11-24 12:20 | XMS_ITS | Clinical Summary ---
Author Organization [facility] Address [address] [place] [id number] Phone [email or web address] Care Team Providers Care Vitamin Manager Name Role Phone RochelleChong myles Primary Care Provider [phone] Allergies Active Allergy Reactions Criticality Noted Date Comments Erythromycin Hives Medium 10/31/2019 Penicillins Hives Medium 10/31/2019 Medications Etonogestrel (Nexplanon) 68 MG implant Inject under the skin. Active Active Problems Problem Noted Date Diagnosed Date Irritation of left eye 06/28/2022 Encounter for fitness for duty examination 01/10 28 weeks gestation of 01/10/2021 Immunizations Immunization Administration Dates Next Due Covid-19 (Moderna [place], 12yrs+) (CVX-207) 2020,03/22/2020 Social History Tobacco Use [...] Health Maintenance Due Date Last Done Comments Cervical Cancer Screening Combo 1995 Dental Cleaning/Exam 1995 HPV / Cotest 1995 Pap Testing 1995 HPV Immunization (1 - 2-dose series) 2006 Hepatitis B Immunization (1 of 3 - 19+ 3-dose series) 2014 Covid-19 Immunization ( - season) 2024 04/05/2020, 03/22/2020, 03/05/2020 Influenza Immunization (#1) 2024 11/17/2009 Tetanus Diphtheria and Pertussis Immunization (3 - Td or Tdap) 01/10/2031 01/10/2021, 11/05/2007 HIB Immunization Aged Out No longer e ligible based on patient's age to complete this topic Hepatitis A Immunization Aged Out No longer eligible based on patient's age to complete this topic Pneumococcal Immunization Aged Out No longer eligible based on patient's age to complete this topic Polio Immunization Aged Out No longer eligible based on patient's age to complete this topic Varicella Immunization Aged Out No lo nger eligible based on patient's age to complete this topic Insurance OPT OUT NO COPAY NB Care Teams Vitamin Manager Relationship Specialty Start Date End Date Chong Byrd [address] [place] [id number] PCP - General Precast Molder 12/08/20
--- OUTSIDE RECORDS SUMMARY | 2024-11-24 12:20 | XMS_ITS | Encounter Summary ---
Author Organization Healthcare Address [address] [place] [id number] Care Team Providers Care Collar Pointer Name Role Phone Provider, Carlee [place] Primary Care Provid er Unavailable Reason for Visit * Reason Comments Med Refill Encounter Details Date Type Department Care Team (Late st Contact Info) Description 01/30/2024 Refill Obstetrics & Gynecology [address] [place] [address] Latrice Bose MD [address] [place] [address] Social History Tobacco Use Types Packs/Day Years Used Date Smoking Tobacco: Every Day Cigarettes 1 5 Smokeless Tobacco: Never Alcohol Use Standard Drinks/Week Comments Not Currently 0 (1 standard drink = 0.6 oz pur e alcohol) PHQ-2 Answer Date Recorded Patient Health Questionnaire-2 Score 0 11/16/2023 [place] Depression Scale Answer Date Recorded [place] Depression Scale Total 14 11/30/2023 The thought of harming myself has occurred to me . Never 11/30/2023 Comments No Sex and Gender Information Value Date Recorded Sex Assigned at Not on file Legal Sex Female 7:26 PM EDT Gender Identity Not on file Sexual Orientation Not on file documented as of this encounter Miscellaneous Notes * Telephone Encounter - Constantino Almeida - 01/30/2024 4:40 PM EST Patient no longer takes documented in this encounter Plan of Treatment Not on file documented as of this encounter Goals Goal Patient Goal Type Associated Problems Recent Progress Patient-Stated? Author Delayed Delivery Care Plan CPM S22 PP LABOR (OBSTETRICS) No Open Scheduling, Background documented as of this encounter Visit Diagnoses Not on filedocumented in this encounter Additional Health Concerns Active Problems Noted Date Diagnosed Date CPM S22 PP LABOR (OBSTETRICS) 05/05/2023 Assessment Noted Time A fall risk assessment has been complete d for the patient 11/30/2023 12:03 PM EDT A Body Mass Index follow-up plan has been documented for the patient 11/30/2023 12:59 PM EDT documented as of this encounter Care Teams Collar Pointer Relationship Specialty Start Date End Date Provider, Carlee Kaur PCP - General 09/20/20 documented as of this encounter
--- OUTSIDE RECORDS SUMMARY | 2024-11-24 12:20 | XMS_ITS | Encounter Summary ---
Author Organization Healthcare Address [address] [place] [address] Care Team Providers Care Basket Patcher Name Role Phone Provider, Carlee [place] Primary Care Provid er Unavailable Encounter Details Date Type Department Care Team (Late st Contact Info) Description 11/04/2024 Telephone Obstetrics & Gynecology [address] [place] [address] Rocio Kan, RN [facility] [place] Social History Tobacco Use Types Packs/Day Years Used Date Smoking Tobacco: Every Day Cigarettes 1 5 Smokeless Tobacco: Never Alcohol Use Standard Drinks/Week Comments Not Currently 0 (1 standard drink = 0.6 oz pur e alcohol) PHQ-2 Answer Date Recorded Patient Health Questionnaire-2 Score 6 09/24/2024 [place] Depression Scale Answer Date Recorded [place] Depression Scale Total 14 11/30/2023 The thought [...] encounter Miscellaneous Notes * Telephone Encounter - Rocio Kan RN - 11/04/2024 8:05 AM EDT called and left vm for patient to return call documented in this encounter Plan of Treatment [...] documented as of this encounter Care Teams Basket Patcher Relationship Specialty Start Date End Date Provider, Carlee Kaur PCP - General 09/20/20 documented as of this encounter
== END 2024-11-23 23:59 ==
LOC: LAB.DROPOF 11-24 12:19
PROVIDERS: PCP Student in an Organized Health Care Education/Training Program; Visit Provider Student in an Organized Health Care Education/Training Program
DX: R68.83 Chills (without fever) (principal); R05.1 Acute cough
CPT/HCPCS: 87631